=== PATIENT | female | born 1965 | race Caucasian/White ===

== ENCOUNTER 2018-07-03 17:27 | Observation (INO) | payer BC, OTHER ==
[2018-07-03 17:38] VITALS: BMI 20.7
--- NOTE | 2018-07-03 17:44 | PDOC ---
History of Present Illness - General Chief Complaint: Irregular Heart Beat Stated Complaint: AFIV Time Seen by Provider: 07/03/18 17:44 - History of Present Illness Initial Comments: 52yo F with PMH of HTN sent by an urgent care center for new-onset Afib with RVR. Patient reports feeling dizzy, lightheaded, and weak since 11:30am this morning. She has never felt this way before. She was prompted by family members to go to an urgent care as she continued to feel poorly. At the urgent care, an EKG was performed and patient was found to have afib with rvr. 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 No focal neurologic deficits or syncopal episodes. Denies fevers, chills, chest pain, or shortness of breath. PCP: Dr. Acharya Past History - Past Medical History Allergies/Adverse Reactions: Allergies Allergy/AdvReac Type Severity Reaction Status Date / Time No Known Allergies Allergy Unverified 12/20/13 12:45 Home Medications: Ambulatory Orders Amlodipine Besylate/Benazepril [Lotrel 5-20 mg Capsule] 1 each PO DAILY - Suicide/Smoking/Psychosocial Hx Smoking History: Unknown if ever smoked Review of Systems - Review of Systems Comments:: Constitutional: no fever, no chills HEENT: no throat pain, no dysphagia Cardiovascular: no chest pain, +palpitations Respiratory: no cough, no shortness of breath Gastrointestinal: no abdominal pain, +nausea Genitourinary: no dysuria, no frequency Musculoskeletal: no myalgia, no arthralgia Skin: no rash, no itching Neurologic: no headache, +weakness *Physical Exam - Vital Signs Last Vital Signs Temp Pulse Resp BP Pulse Ox 97.1 F L 136 H 20 109/67 100 07/03/18 17:30 07/03/18 17:30 07/03/18 17:30 07/03/18 17:30 07/03/18 17:30 - Physical Exam Comments: General: Awake, alert, and fully oriented, anxious-appearing Head: No signs of trauma Eyes: EOMI, sclera anicteric ENT: Moist mucus membranes Neck: Normal ROM, supple Lungs: Lungs clear, Normal breath sounds Cardio: Irregular rate and rhythm, S1 and S2 present Abdomen: Soft, nontender. No guarding, no rebound, no masses Extremities: Normal range of motion, Distal pulses present SKIN: Warm, Dry, normal turgor Neurologic: Cranial nerves II through XII grossly intact. Normal speech ED Treatment Course - LABORATORY CBC & Chemistry Diagram: 07/04/18 05:30 07/04/18 05:30 Medical Decision Making - Medical Decision Making 52yo F with PMH of HTN sent by an urgent care center for new-onset Afib with RVR. Cardizem 10mg given, rate still in 130s-140s Another Cardizem 10mg given, rate still in 130s-140s Cardizem drip ordered, for starting rate of 5 07/03/18 18:39 Patient signed out to Dr. Muniz 07/03/18 19:18 *DC/Admit/Observation/Transfer Diagnosis at time of Disposition: New onset a-fib - Referrals - Patient Instructions - Post Discharge Activity
--- NOTE | 2018-07-03 17:45 | PDOC ---
Attending Attestation - HPI HPI: 07/03/18 18:38 The patient is a 52 year old female with no past medical history who presents to the ED sent from urgent care for evaluation of new onset AFib. The patient states she woke up feeling well, did her laundry and put the clean clothes away around 11AM. She states she felt dehydrated after doing the morning laundry, drank water and laid on the couch, however, developed a sudden onset of dizziness and intermittent palpitations. She also reports a couple episodes of diarrhea, nausea, and vomiting which alerted her partner to take her to urgent care. She states she has never experienced these symptoms in the past. She denies chest pain, SOB. She denies dysuria, hematuria. She denies hematochezia. Allergies: NKDA PCP: Dr. Acharya - Physicial Exam PE: 07/03/18 18:42 GENERAL: The patient is in no acute distress. HEAD: Normal with no signs of trauma. EYES: PERRLA, EOMI, sclera anicteric, conjunctiva clear. ENT: Ears normal, nares patent, oropharynx clear without exudates. Moist mucous membranes. NECK: Normal range of motion, supple without lymphadenopathy, JVD, or masses. LUNGS: Breath sounds equal, clear to auscultation bilaterally. No wheezes, and no crackles. HEART: (+) irregularly irregular, normal S1 and S2 without murmur, rub or gallop. ABDOMEN: Soft, nontender, normoactive bowel sounds. No guarding, no rebound. No masses palpable. EXTREMITIES: Normal range of motion, no edema. No clubbing or cyanosis. No erythema, or tenderness. NEUROLOGICAL: Cranial nerves II through XII grossly intact. Normal speech. No focal neurological deficits. MUSCULOSKELETAL: Back non-tender to palpation, no CVA tenderness SKIN: Warm, Dry, normal turgor, no rashes or lesions noted. <Lisbeth Razo - Last Filed: 07/03/18 18:38> - Resident Resident Name: Daniela Starks - ED Attending Attestation I have performed the following: I have examined & evaluated the patient, The case was reviewed & discussed with the resident, I agree w/resident's findings & plan, Exceptions are as noted - Medical Decision Making 07/03/18 18:30 52 yo F h/o HTN with new onset Afib presenting to the ER with a complaint of dizziness No chest pain (+) shortness of breath no palpitations Pt seen at urgent care and sent to the ER for evaluation EKG - Afib rate of 138 bpm, no st elevation or depression, axis nml, intervals nml, t wave flattening Given cardizem HR decreased from 150 to 110 Given Cardizem 60 mg po Awaiting labs Awaiting CXR Will admit 07/03/18 18:43 Pt HR increased again to 150 Cardizem 10 given again 07/03/18 18:44 CXR - no acute findings Labs pending Will admit Cardiology consult Signed out to night team <Nohemi Rodriguez - Last Filed: 07/05/18 17:47> Attestations - Attestations 07/03/18 18:42 Documentation prepared by Lisbeth Razo, acting as biomedical equipment support specialist for Nohemi Rodriguez MD <Lisbeth Razo - Last Filed: 07/03/18 18:38>
[2018-07-03] MEDS ORDERED: dilTIAZem HCL 50 MG/10 ML - 10 ML VIAL IVPUSH ONE ×2 (18:21→18:39)
[2018-07-03] MEDS ORDERED: SODIUM CHLORIDE 1,000 ML IV STA (18:22)
[2018-07-03] MEDS ORDERED: dilTIAZem HCL 125 MG/25 ML - 25 ML VIAL ONE (18:25)
[2018-07-03] MEDS ORDERED: dilTIAZem HCL 60 MG TABLET (FP) ONE (18:29)
[2018-07-03] MEDS ORDERED: dilTIAZem HCL 60 MG TABLET (FP) PO ONE (18:29)
[2018-07-03 18:47] LABS: BASO % 0.5 % (0-2.0); EOS % 0.4 % (0-4.5); HEMATOCRIT 41.1 % (32.4-45.2); HEMOGLOBIN 13.8 GM/dL (10.7-15.3); LYMPH % 6.8 % (8-40); MCH 29.7 pg (25.7-33.7); MCHC 33.7 g/dl (32.0-36.0); MEAN CELL VOLUME 88.2 fl (80-96); MEAN PLT VOLUME 8.4 fl (7.5-11.1); MONO % 4.7 % (3.8-10.2); NEUT % 87.6 % (42.8-82.8); PLATELET COUNT 322 K/MM3 (134-434); RBC 4.65 M/mm3 (3.60-5.2); RDW 12.5 % (11.6-15.6); WHITE BLOOD COUNT 13.3 K/mm3 (4.0-10.0)
[2018-07-03] MEDS ORDERED: DILTIAZEM INJECTION 125 MG in DEXTROSE 5%-WATER - 100 ML IVPB SCH (19:00)
[2018-07-03 19:01] LABS: INR 1.02 (0.83-1.09)
[2018-07-03 19:03] LABS: ACTIVATED PTT 31.5 SECONDS (25.2-36.5)
[2018-07-03 19:33] LABS: ALBUMIN 4.4 g/dl (3.4-5.0); ALK PHOS 124 U/L (45-117); ANION GAP 11 MMOL/L (8-16); BILIRUBIN,TOTAL 0.5 mg/dL (0.2-1); BLOOD UREA NITROGEN 9 mg/dL (7-18); CALCIUM 8.5 mg/dL (8.5-10.1); CHLORIDE 104 mmol/L (98-107); CO2 23 mmol/L (21-32); CREATININE 0.5 mg/dL (0.55-1.3); GLUCOSE,RANDOM 117 mg/dL (74-106); N-TERMINAL BNP 86.3 pg/ml (5-125); POTASSIUM 3.6 mmol/L (3.5-5.1); SGOT/AST 21 U/L (15-37); SGPT/ALT 26 U/L (13-61); SODIUM 137 mmol/L (136-145); TOT PROT 7.9 g/dl (6.4-8.2)
--- NOTE | 2018-07-03 21:13 | PDOC ---
*Physical Exam - Vital Signs Last Vital Signs Temp Pulse Resp BP Pulse Ox 98.1 F 95 H 23 H 110/62 98 07/03/18 18:02 07/03/18 19:20 07/03/18 18:02 07/03/18 19:20 07/03/18 18:02 ED Treatment Course - LABORATORY CBC & Chemistry Diagram: 07/03/18 18:08 07/03/18 18:08 - ADDITIONAL ORDERS Additional order review: Laboratory Results 07/03/18 07/03/18 07/03/18 18:08 18:08 18:08 PT with INR 12.00 INR 1.02 PTT (Actin FS) 31.5 Sodium Potassium Chloride Carbon Dioxide Anion Gap BUN Creatinine Creat Clearance w eGFR Random Glucose Calcium Total Bilirubin AST ALT Alkaline Phosphatase Creatine Kinase 75 Troponin I < 0.02 B-Natriuretic Peptide Total Protein Albumin TSH Urine HCG, Qual Negative 07/03/18 18:08 PT with INR INR PTT (Actin FS) Sodium 137 Potassium 3.6 Chloride 104 Carbon Dioxide 23 Anion Gap 11 BUN 9 Creatinine 0.5 L Creat Clearance w eGFR 129.06 Random Glucose 117 H Calcium 8.5 Total Bilirubin 0.5 AST 21 ALT 26 Alkaline Phosphatase 124 H Creatine Kinase Troponin I B-Natriuretic Peptide 86.3 Total Protein 7.9 Albumin 4.4 TSH 0.63 Urine HCG, Qual 07/03/18 18:08 RBC 4.65 MCV 88.2 MCHC 33.7 RDW 12.5 MPV 8.4 Neutrophils % 87.6 H Lymphocytes % 6.8 L Monocytes % 4.7 Eosinophils % 0.4 Basophils % 0.5 - Medications Given in the ED: ED Medications Discontinued Medications Generic Name Dose Route Start Last Admin Trade Name Freq PRN Reason Stop Dose Admin Diltiazem HCl 10 mg 07/03/18 18:21 07/03/18 18:32 Cardizem Injection - IVPUSH 07/03/18 18:22 10 mg ONCE ONE Administration Diltiazem HCl 60 mg 07/03/18 18:29 07/03/18 18:32 Cardizem - PO 07/03/18 18:30 60 mg ONCE ONE Administration Diltiazem HCl 10 mg 07/03/18 18:39 07/03/18 18:59 Cardizem Injection - IVPUSH 07/03/18 18:40 10 mg ONCE ONE Administration Sodium Chloride 1,000 mls @ 1,000 mls/hr 07/03/18 18:22 07/03/18 18:32 Normal Saline - IV 07/03/18 19:21 1,000 mls/hr ASDIR STA Administration *DC/Admit/Observation/Transfer Diagnosis at time of Disposition: New onset a-fib - Discharge Dispostion Decision to Admit order: Yes - Referrals Referrals: Harsha Acharya MD [Primary Care Provider] - - Patient Instructions - Post Discharge Activity
[2018-07-03 23:01] LABS: EPI CELLS 1.2 /HPF (0-5/HPF); PH,URINE 6.5 (5.0-8.0); URINE APPEARANCE CLEAR; URINE BACTERIA 56.2 /hpf (NEGATIVE); URINE BILIRUBIN NEGATIVE (NEGATIVE); URINE CASTS 0 /hpf (0-8); URINE COLOR YELLOW; URINE GLUCOSE (UA) NEGATIVE (NEGATIVE); URINE KETONE 1+ (NEGATIVE); URINE LEUK ESTERASE NEGATIVE (NEGATIVE); URINE NITRITE NEGATIVE (NEGATIVE); URINE PROTEIN NEGATIVE (NEGATIVE); URINE RBC 2 /hpf (0-4); URINE UROBILINOGEN 0.2 mg/dL (0.2-1.0); URINE WBC 1 /hpf (0-5)
--- NOTE | 2018-07-04 02:53 | HP ---
CHIEF COMPLAINT: palpitations, vomiting and diarrhea today PCP:Dr. Acharya HISTORY OF PRESENT ILLNESS: 52 year old female with history of hypertension(on amlodipine) who presented with palpitations in addition to vomiting and diarrhea which started today at around 11:30 pm. She was found to in (new onset) atrial fibrillation with RVR in the ER . She was started on a IV cardizem gtt and converted spontaneously to a regular rhythm. She denies history of prior arrthymia,TIA, excessive intake of alcohol, or sleep apnea. She reports she drinks pepsi on a daily basis. She was found to have an elevated WBC of 13.3. She is being admitted to observation to telemetry for further cardiac and medical evaluation. Recent Travel:denies PAST MEDICAL HISTORY:hypertension PAST SURGICAL HISTORY:denies Social History: Smoking:denies Alcohol:denies Drugs: denies Family History:noncontributory Allergies No Known Allergies Allergy (Unverified 12/20/13 12:45) HOME MEDICATIONS: Home Medications Medication Instructions Recorded Amlodipine Besylate/Benazepril 1 each PO DAILY 07/03/18 [Lotrel 5-20 mg Capsule] REVIEW OF SYSTEMS CONSTITUTIONAL: Absent: fever, chills, diaphoresis, generalized weakness, malaise, loss of appetite, weight change HEENT: Absent: rhinorrhea, nasal congestion, throat pain, throat swelling, difficulty swallowing, mouth swelling, ear pain, eye pain, visual changes CARDIOVASCULAR: Absent: chest pain, syncope, palpitations, irregular heart rate, lightheadedness , peripheral edema RESPIRATORY: Absent: cough, shortness of breath, dyspnea with exertion, orthopnea, wheezing, stridor, hemoptysis GASTROINTESTINAL: Absent: abdominal pain, abdominal distension, nausea, vomiting, diarrhea, constipation, melena, hematochezia GENITOURINARY: Absent: dysuria, frequency, urgency, hesitancy, hematuria, flank pain, genital pain MUSCULOSKELETAL: Absent: myalgia, arthralgia, joint swelling, back pain, neck pain SKIN: Absent: rash, itching, pallor HEMATOLOGIC/IMMUNOLOGIC: Absent: easy bleeding, easy bruising, lymphadenopathy, frequent infections ENDOCRINE: Absent: unexplained weight gain, unexplained weight loss, heat intolerance, cold intolerance NEUROLOGIC: Absent: headache, focal weakness or paresthesias, dizziness, unsteady gait, seizure, mental status changes, bladder or bowel incontinence PSYCHIATRIC: Absent: anxiety, depression, suicidal or homicidal ideation, hallucinations. PHYSICAL EXAMINATION Vital Signs - 24 hr 07/03/18 07/03/18 07/03/18 17:30 18:02 19:20 Temperature 97.1 F L 98.1 F Pulse Rate 136 H 95 H Pulse Rate [ 132 H Apical] Respiratory 20 23 H Rate Blood Pressure 109/67 110/62 Blood Pressure 102/65 [Left] O2 Sat by Pulse 100 98 Oximetry (%) 07/03/18 07/03/18 07/03/18 20:15 21:20 22:24 Temperature Pulse Rate Pulse Rate [ 92 H 80 75 Apical] Respiratory Rate Blood Pressure Blood Pressure [Left] O2 Sat by Pulse Oximetry (%) 07/03/18 07/04/18 23:15 00:19 Temperature Pulse Rate Pulse Rate [ 70 Apical] Respiratory 18 Rate Blood Pressure Blood Pressure 99/65 121/76 [Left] O2 Sat by Pulse 98 Oximetry (%) GENERAL: awake, alert, and fully oriented HEAD: normal with no signs of trauma EYES: pupils equal, round and reactive to light EARS, NOSE, THROAT: ears normal nares patent oropharynx clear without exudates NECK: Normal range of motion, LUNGS: breath sounds equal, clear to auscultation bilaterally no rales no wheezing HEART: regular rate and rhythm, normal S1 and S2 without murmur, ABDOMEN: soft, nontender, not distended, normoactive bowel sounds MUSCULOSKELETAL: Normal range of motion at all joints. No bony deformities or tenderness UPPER EXTREMITIES: 2+ pulses, warm, well-perfused no cyanosis no clubbing no peripheral edema LOWER EXTREMITIES: 2+ pulses, warm, well-perfused No calf tenderness no peripheral edema NEUROLOGICAL: no neuro focal deficits PSYCHIATRIC: cooperative. SKIN: warm, dry, normal turgor, no rashes or lesions noted, normal capillary refill Laboratory Results - last 24 hr 07/03/18 07/03/18 07/03/18 18:08 18:08 18:08 WBC 13.3 H RBC 4.65 Hgb 13.8 Hct 41.1 MCV 88.2 MCH 29.7 MCHC 33.7 RDW 12.5 Plt Count 322 MPV 8.4 Absolute Neuts (auto) 11.6 H Neutrophils % 87.6 H Lymphocytes % 6.8 L Monocytes % 4.7 Eosinophils % 0.4 Basophils % 0.5 Nucleated RBC % 0 PT with INR INR PTT (Actin FS) Sodium 137 Potassium 3.6 Chloride 104 Carbon Dioxide 23 Anion Gap 11 BUN 9 Creatinine 0.5 L Creat Clearance w eGFR 129.06 Random Glucose 117 H Calcium 8.5 Total Bilirubin 0.5 AST 21 ALT 26 Alkaline Phosphatase 124 H Creatine Kinase 75 Troponin I < 0.02 B-Natriuretic Peptide 86.3 Total Protein 7.9 Albumin 4.4 TSH 0.63 Urine Color Urine Appearance Urine pH Ur Specific [place] Urine Protein Urine Glucose (UA) Urine Ketones Urine Blood Urine Nitrite Urine Bilirubin Urine Urobilinogen Ur Leukocyte Esterase Urine WBC (Auto) Urine RBC (Auto) Urine Casts (Auto) U Epithel Cells (Auto) Urine Bacteria (Auto) Urine HCG, Qual 07/03/18 07/03/18 07/03/18 18:08 18:08 22:45 WBC RBC Hgb Hct MCV MCH MCHC RDW Plt Count MPV Absolute Neuts (auto) Neutrophils % Lymphocytes % Monocytes % Eosinophils % Basophils % Nucleated RBC % PT with INR 12.00 INR 1.02 PTT (Actin FS) 31.5 Sodium Potassium Chloride Carbon Dioxide Anion Gap BUN Creatinine Creat Clearance w eGFR Random Glucose Calcium Total Bilirubin AST ALT Alkaline Phosphatase Creatine Kinase Troponin I B-Natriuretic Peptide Total Protein Albumin TSH Urine Color Yellow Urine Appearance Clear Urine pH 6.5 Ur Specific [place] 1.004 L Urine Protein Negative Urine Glucose (UA) Negative Urine Ketones 1+ H Urine Blood Trace Urine Nitrite Negative Urine Bilirubin Negative Urine Urobilinogen 0.2 Ur Leukocyte Esterase Negative Urine WBC (Auto) 1 Urine RBC (Auto) 2 Urine Casts (Auto) 0 U Epithel Cells (Auto) 1.2 Urine Bacteria (Auto) 56.2 Urine HCG, Qual Negative ASSESSMENT/PLAN: 52 year old female with history of hypertension(on amlodipine) who presented with palpitations in addition to vomiting and diarrhea and in this setting found to be in (new onset) atrial fibrillation with RVR . She was started on a IV cardizem gtt and converted spontaneously to a regular rhythm. New Onset Atrial Fibrillation Converted to sr with IV cardizem gtt, no signs of fluid overload, TSH normal. Continue with telemetry. Echocardiogram ordered. Added metoprolol tartrate 25 mg once daily for rate control Added therapeutic lovenox for anticoagulation. EVELIO VAsc score is 2 for stroke risk and likely will benefit with assistant terminal manager NOAC. Will defer to Cardiology. Cardiology- Dr.. Soriano consulted. Leukocytosis UA negative, CXR with no infiltrate, and a more prominent mediastinum, remains afebrile. Will check CT scan of chest and abdomen with and without IV contrast to exclude infectious process. Hypertension Controlled. Continue with amlodipine and metoprolol tartrate. DVT Prohplaxis Continue with lovenox. Visit type - Emergency Visit Emergency Visit: No - New Patient This patient is new to me today: Yes Date on this admission: 07/04/18 - Critical Care Critical Care patient: No
[2018-07-04] MEDS ORDERED: ENOXAPARIN NA (PORCINE) 40 MG/0.4 ML DISP.SYRIN SQ SCH (03:00)
[2018-07-04] MEDS ORDERED: ENOXAPARIN NA (PORCINE) 40 MG/0.4 ML DISP.SYRIN SQ ONE (03:10)
[2018-07-04 06:11] LABS: HEMATOCRIT 38.3 % (32.4-45.2); HEMOGLOBIN 13.2 GM/dL (10.7-15.3); MCH 30.5 pg (25.7-33.7); MCHC 34.5 g/dl (32.0-36.0); MEAN CELL VOLUME 88.4 fl (80-96); MEAN PLT VOLUME 8.4 fl (7.5-11.1); PLATELET COUNT 317 K/MM3 (134-434); RBC 4.33 M/mm3 (3.60-5.2); RDW 12.7 % (11.6-15.6); WHITE BLOOD COUNT 10.3 K/mm3 (4.0-10.0)
[2018-07-04 06:39] LABS: ANION GAP 6 MMOL/L (8-16); BLOOD UREA NITROGEN 6 mg/dL (7-18); CHLORIDE 105 mmol/L (98-107); CO2 25 mmol/L (21-32); CREATININE 0.4 mg/dL (0.55-1.3); GLUCOSE,RANDOM 106 mg/dL (74-106); MAGNESIUM 2.2 mg/dL (1.8-2.4); POTASSIUM 3.6 mmol/L (3.5-5.1); SODIUM 136 mmol/L (136-145)
[2018-07-04] MEDS ORDERED: METOPROLOL TARTRATE 25 MG TABLET (FP) PO SCH (10:00)
[2018-07-04] MEDS ORDERED: amLODIPine BESYLATE 5 MG TABLET (FP) PO SCH (10:00)
[2018-07-04 10:50] VITALS: BP 121/75; PULSE 90; TEMP 98.3
[2018-07-04] MEDS ORDERED: METOPROLOL TARTRATE 25 MG TABLET (FP) ONE (10:55)
[2018-07-04] MEDS ORDERED: amLODIPine BESYLATE 5 MG TABLET (FP) ONE (10:55)
--- NOTE | 2018-07-04 11:17 | PN ---
Progress Note (short form) - Note Progress Note: Events noted Pt is lying down , no distress no palpitations No chest pain No SOB no dizziness Vital Signs - 24 hr 07/03/18 07/03/18 07/03/18 17:30 18:02 19:20 Temperature 97.1 F L 98.1 F Pulse Rate 136 H 95 H Pulse Rate [ 132 H Apical] Respiratory 20 23 H Rate Blood Pressure 109/67 110/62 Blood Pressure 102/65 [Left] O2 Sat by Pulse 100 98 Oximetry (%) 07/03/18 07/03/18 07/03/18 20:15 21:20 22:24 Temperature Pulse Rate Pulse Rate [ 92 H 80 75 Apical] Respiratory Rate Blood Pressure Blood Pressure [Left] O2 Sat by Pulse Oximetry (%) 07/03/18 07/04/18 07/04/18 23:15 00:19 04:15 Temperature Pulse Rate Pulse Rate [ 70 74 Apical] Respiratory 18 18 Rate Blood Pressure Blood Pressure 99/65 121/76 111/70 [Left] O2 Sat by Pulse 98 100 Oximetry (%) 07/04/18 07/04/18 06:58 10:00 Temperature 97.8 F 98.3 F Pulse Rate Pulse Rate [ 74 90 Apical] Respiratory 18 18 Rate Blood Pressure Blood Pressure 115/49 L 121/75 [Left] O2 Sat by Pulse 98 99 Oximetry (%) Current Medications Generic Name Dose Route Start Last Admin Trade Name Freq PRN Reason Stop Dose Admin Amlodipine Besylate 5 mg 07/04/18 10:00 07/04/18 11:04 Norvasc - PO 5 mg DAILY MERNA Administration Apixaban 5 mg 07/04/18 22:00 Eliquis - PO BID MERNA Metoprolol Tartrate 25 mg 07/04/18 10:00 07/04/18 11:03 Lopressor - PO 25 mg DAILY MERNA Administration Laboratory Results - last 24 hr 07/03/18 07/03/18 07/03/18 18:08 18:08 18:08 WBC 13.3 H RBC 4.65 Hgb 13.8 Hct 41.1 MCV 88.2 MCH 29.7 MCHC 33.7 RDW 12.5 Plt Count 322 MPV 8.4 Absolute Neuts (auto) 11.6 H Neutrophils % 87.6 H Lymphocytes % 6.8 L Monocytes % 4.7 Eosinophils % 0.4 Basophils % 0.5 Nucleated RBC % 0 PT with INR INR PTT (Actin FS) Sodium 137 Potassium 3.6 Chloride 104 Carbon Dioxide 23 Anion Gap 11 BUN 9 Creatinine 0.5 L Creat Clearance w eGFR 129.06 Random Glucose 117 H Calcium 8.5 Magnesium Total Bilirubin 0.5 AST 21 ALT 26 Alkaline Phosphatase 124 H Creatine Kinase 75 Troponin I < 0.02 B-Natriuretic Peptide 86.3 Total Protein 7.9 Albumin 4.4 TSH 0.63 Urine Color Urine Appearance Urine pH Ur Specific [place] Urine Protein Urine Glucose (UA) Urine Ketones Urine Blood Urine Nitrite Urine Bilirubin Urine Urobilinogen Ur Leukocyte Esterase Urine WBC (Auto) Urine RBC (Auto) Urine Casts (Auto) U Epithel Cells (Auto) Urine Bacteria (Auto) Urine HCG, Qual 07/03/18 07/03/18 07/03/18 18:08 18:08 22:45 WBC RBC Hgb Hct MCV MCH MCHC RDW Plt Count MPV Absolute Neuts (auto) Neutrophils % Lymphocytes % Monocytes % Eosinophils % Basophils % Nucleated RBC % PT with INR 12.00 INR 1.02 PTT (Actin FS) 31.5 Sodium Potassium Chloride Carbon Dioxide Anion Gap BUN Creatinine Creat Clearance w eGFR Random Glucose Calcium Magnesium Total Bilirubin AST ALT Alkaline Phosphatase Creatine Kinase Troponin I B-Natriuretic Peptide Total Protein Albumin TSH Urine Color Yellow Urine Appearance Clear Urine pH 6.5 Ur Specific [place] 1.004 L Urine Protein Negative Urine Glucose (UA) Negative Urine Ketones 1+ H Urine Blood Trace Urine Nitrite Negative Urine Bilirubin Negative Urine Urobilinogen 0.2 Ur Leukocyte Esterase Negative Urine WBC (Auto) 1 Urine RBC (Auto) 2 Urine Casts (Auto) 0 U Epithel Cells (Auto) 1.2 Urine Bacteria (Auto) 56.2 Urine HCG, Qual Negative 07/04/18 07/04/18 05:30 05:30 WBC 10.3 H RBC 4.33 Hgb 13.2 Hct 38.3 MCV 88.4 MCH 30.5 MCHC 34.5 RDW 12.7 Plt Count 317 MPV 8.4 Absolute Neuts (auto) Neutrophils % Lymphocytes % Monocytes % Eosinophils % Basophils % Nucleated RBC % PT with INR INR PTT (Actin FS) Sodium 136 Potassium 3.6 Chloride 105 Carbon Dioxide 25 Anion Gap 6 L BUN 6 L Creatinine 0.4 L Creat Clearance w eGFR 166.97 Random Glucose 106 Calcium 9.0 Magnesium 2.2 Total Bilirubin AST ALT Alkaline Phosphatase Creatine Kinase Troponin I B-Natriuretic Peptide Total Protein Albumin TSH Urine Color Urine Appearance Urine pH Ur Specific [place] Urine Protein Urine Glucose (UA) Urine Ketones Urine Blood Urine Nitrite Urine Bilirubin Urine Urobilinogen Ur Leukocyte Esterase Urine WBC (Auto) Urine RBC (Auto) Urine Casts (Auto) U Epithel Cells (Auto) Urine Bacteria (Auto) Urine HCG, Qual S1 S2 Irregular Lungs clear Abd- soft, NT No edema PLAN will dc Lovenox and start Eliquis rate is controlled continue with Metoprolol CT Chest=-=- negative ua unremarkable check TSH cardiology eval Echo done pt wants to go home-- will need Cardiology input first Problem List - Problems (1) HTN (hypertension) Code(s): I10 - ESSENTIAL (PRIMARY) HYPERTENSION (2) New onset a-fib Code(s): I48.91 - UNSPECIFIED ATRIAL FIBRILLATION
--- NOTE | 2018-07-04 12:46 | ECHO ---
Name: RAJAN BLACKMON Exam:Adult Echocardiogram Study Date: 07/04/2018 08:30 AM Age: 52 yrs Reason For Study: Arrhythmia Height: 63 in Weight: 117 lb BSA: 1.5 m2 MMode/2D Measurements & Calculations IVSd: 0.78 cm Ao root diam: 2.6 cm LVIDd: 4.3 cm LA dimension: 2.6 cm LVIDs: 2.4 cm LVPWd: 0.74 cm EDV(Teich): 84.9 ml LVOT diam: 2.0 cm ESV(Teich): 19.6 ml Doppler Measurements & Calculations MV E max rupert: 71.3 cm/sec Ao V2 max: 143.9 cm/sec MV A max rupert: 87.3 cm/sec Ao max P.3 mmHg MV E/A: 0.82 MV dec time: 0.14 sec MARGIE(V,D): 2.4 cm2 LV V1 max P.8 mmHg PA V2 max: 105.9 cm/sec LV V1 max: 109.6 cm/sec PA max P.5 mmHg Med Peak E' Rupert: 7.9 cm/sec PI Vmax: 116.7 cm/sec Med E/e': 9.0 Lat Peak E' Rupert: 11.7 cm/sec Lat E/e': 6.1 Procedure A complete two-dimensional transthoracic echocardiogram was performed (2D, M-mode, Doppler and color flow Doppler). Left Ventricle The left ventricular size, thickness and function are normal. The left ventricular ejection fraction is normal. Ejection Fraction = 55-60%. Right Ventricle The right ventricle is normal in size and function. Atria Normal left and right atrial size and function. Mitral Valve There is no mitral regurgitation noted. Tricuspid Valve There is trace tricuspid regurgitation. There was insufficient TR detected to calculate RV systolic p ressure. Aortic Valve No hemodynamically significant valvular aortic stenosis. No aortic regurgitation is present. Pulmonic Valve There is no pulmonic valvular regurgitation. Great Vessels The aortic root is normal size. Pericardium/Pleura There is no pericardial effusion. Interpretation Summary The left ventricular size, thickness and function are normal The right ventricle is normal in size and function. There is trace tricuspid regurgitation. MD Malcolm Rodriguez 07/04/2018 12:46 PM
--- NOTE | 2018-07-04 16:24 | CON.CARD ---
Consult Consult Specialty:: cardiology Reason for Consultation:: ?New onset AF - History of Present Illness Chief Complaint: Pt A&Ox3; ambulatory; asymptomatic. Her is at bedside. History of Present Illness: The patient is a 52 year old female with HTN (on amlodipine) and anxiety/panic attacks, perimenopausal, s/p lower back surgery severa years ago, who presents to the ED sent from urgent care for evaluation of new onset AFib. The patient states she woke up feeling well, did her laundry and put the clean clothes away around 11AM. She states she felt dehydrated after doing the morning laundry, drank water and laid on the couch, however, developed a sudden onset of dizziness and intermittent palpitations. She also reports a couple episodes of diarrhea, nausea, and vomiting which alerted her partner to take her to urgent care. She has had a few episodes in the past 3 weeks of weakness and palpitations. She denies chest pain, SOB. She denies dysuria, hematuria. She denies hematochezia. She walks every day so that her back does not become stiff; at times she walks two or three miles to visit her mother. SHe denies chesst pain, dizziness, dyspnea, or palpitations while walking. She was told her cholesterol was "a little high" recently. She has a cup of doffee alsmot every night. Allergies: NKDA PCP: Dr. Acharya - History Source History Provided By: Patient, Family Member, Medical Record Limitations to Obtaining History: No Limitations - Past Medical History Reproductive: Yes: Other (menses have been irregular lately) Psych: Yes: Anxiety, Panic - Past Surgical History Past Surgical History: Yes: Laminectomy (lower back surgery several years ago) - Alcohol/Substance Use Hx Alcohol Use: No History of Substance Use: reports: None - Smoking History Smoking history: Never smoked - Social History Usual Living Arrangement: With Spouse Home Medications - Allergies Allergies/Adverse Reactions: Allergies Allergy/AdvReac Type Severity Reaction Status Date / Time No Known Allergies Allergy Unverified 07/04/18 17:21 - Home Medications Home Medications: Ambulatory Orders Apixaban [Eliquis -] 5 mg PO BID #60 tablet 07/04/18 Diltiazem Cd [Cardizem Cd -] 120 mg PO DAILY #30 cap.cd.24h 07/04/18 Family Disease History - Family Disease History Family Disease History: Other: Father (CVA in his 70s) Review of Systems - Review of Systems Constitutional: reports: No Symptoms Eyes: reports: No Symptoms HENT: reports: No Symptoms Neck: reports: No Symptoms Cardiovascular: reports: Palpitations Respiratory: reports: No Symptoms Gastrointestinal: reports: No Symptoms Genitourinary: reports: Other (irregular menses lately) Breasts: reports: No Symptoms Reported Musculoskeletal: reports: No Symptoms Integumentary: reports: No Symptoms Neurological: reports: Weakness Endocrine: reports: No Symptoms Hematology/Lymphatic: reports: No Symptoms Psychiatric: reports: Anxiety, Panic - Risk Factors Known Risk Factors: Yes: Age, Hypercholesterolemia, Hypertension Vital Signs: Vital Signs Temperature 98.3 F 07/04/18 10:00 Pulse Rate 90 07/04/18 10:00 Respiratory Rate 18 07/04/18 10:00 Blood Pressure 121/75 07/04/18 10:00 O2 Sat by Pulse Oximetry (%) 99 07/04/18 10:00 Constitutional: Yes: Calm, Thin Eyes: Yes: WNL HENT: Yes: WNL Neck: Yes: WNL Respiratory: Yes: WNL Gastrointestinal: Yes: WNL Renal/: Yes: WNL Cardiovascular: Yes: WNL JVD: No Carotid Bruit: No PMI: Non-Displaced Heart Sounds: Yes: S1 Musculoskeletal: Yes: WNL Extremities: Yes: WNL Edema: No Peripheral Pulses WNL: Yes Integumentary: Yes: WNL Neurological: Yes: WNL ...Motor Strength: WNL Psychiatric: Yes: WNL - Other Data Labs, Other Data: CBC, BMP 07/04/18 05:30 07/04/18 05:30 INR, PTT INR 1.02 (0.83-1.09) 07/03/18 18:08 Troponin, BNP 07/03/18 07/03/18 18:08 18:08 Troponin I < 0.02 B-Natriuretic Peptide 86.3 Troponin, BNP 07/03/18 07/03/18 18:08 18:08 Troponin I < 0.02 B-Natriuretic Peptide 86.3 Abnormal Lab Results 07/03/18 07/03/18 07/03/18 18:08 18:08 22:45 WBC 13.3 H Absolute Neuts (auto) 11.6 H Neutrophils % 87.6 H Lymphocytes % 6.8 L Anion Gap BUN Creatinine 0.5 L Random Glucose 117 H Alkaline Phosphatase 124 H Ur Specific [place] 1.004 L Urine Ketones 1+ H 07/04/18 07/04/18 05:30 05:30 WBC 10.3 H Absolute Neuts (auto) Neutrophils % Lymphocytes % Anion Gap 6 L BUN 6 L Creatinine 0.4 L Random Glucose Alkaline Phosphatase Ur Specific [place] Urine Ketones Echo: Report Reviewed (normal LVEF; normal chamber sizes) Ejection Fraction %: LVEF > or = 40 % Imaging - Results Chest X-ray: Image Reviewed (no acute pathology) EKG: Image Reviewed (Initial EKG: AF with RVR 2nd EKG: NSR; normal study) Problem List - Problems (1) Panic anxiety syndrome Code(s): F41.0 - PANIC DISORDER [EPISODIC PAROXYSMAL ANXIETY] (2) Perimenopausal Code(s): N95.1 - MENOPAUSAL AND FEMALE CLIMACTERIC STATES (3) HTN (hypertension) Code(s): I10 - ESSENTIAL (PRIMARY) HYPERTENSION (4) New onset a-fib Assessment/Plan: Now back to sinus rhythm. ECHO: normal LVEF; normal chamber sizes. TSH WNL. Plan: Will diiscontinue metoprolol (pt is young, and has no reduction in LVEF or knopwn CAD) and start diltiazem CD. Dscontinue amlodipine. Pt is on apixaban 5 mg bid for anticoagulation. Folow HR and BP as outpaient. From a cardiac perspective, pt may be followed as an outpatient. Will have EP consult for long-term rate/rhythm monitoring to determine efficacy of diltiazem and necessity of long-trerm anticoagulation, and consideration of ablation in the future. Code(s): I48.91 - UNSPECIFIED ATRIAL FIBRILLATION (5) Hyperlipidemia Assessment/Plan: f/u lipid profile (hx of lipids being "a little high"). Code(s): E78.5 - HYPERLIPIDEMIA, UNSPECIFIED
--- NOTE | 2018-07-04 16:35 | EKG ---
Test Reason : Blood Pressure : / mmHG Vent. Rate : 078 BPM Atrial Rate : 078 BPM P-R Int : 124 ms QRS Dur : 072 ms QT Int : 408 ms P-R-T Axes : 000 035 022 degrees QTc Int : 465 ms NORMAL SINUS RHYTHM NONSPECIFIC T WAVE ABNORMALITY PROLONGED QT ABNORMAL ECG WHEN COMPARED WITH ECG OF 03-JUL-2018 17:43, SINUS RHYTHM HAS REPLACED ATRIAL FIBRILLATION VENT. RATE HAS DECREASED BY 60 BPM NON-SPECIFIC CHANGE IN ST SEGMENT IN INFERIOR LEADS Confirmed by PRADIP HARRELL MD ([id number]) on 07/04/2018 4:35:03 PM Referred By: Confirmed By:PRADIP HARRELL MD
--- NOTE | 2018-07-04 16:37 | EKG ---
Test Reason : Blood Pressure : / mmHG Vent. Rate : 138 BPM Atrial Rate : 110 BPM P-R Int : 000 ms QRS Dur : 070 ms QT Int : 264 ms P-R-T Axes : 000 064 -39 degrees QTc Int : 399 ms POOR DATA QUALITY, INTERPRETATION MAY BE ADVERSELY AFFECTED ATRIAL FIBRILLATION WITH RAPID VENTRICULAR RESPONSE NONSPECIFIC T WAVE ABNORMALITY ABNORMAL ECG NO PREVIOUS ECGS AVAILABLE Confirmed by PRADIP HARRELL MD ([id number]) on 07/04/2018 4:36:52 PM Referred By: Confirmed By:PRADIP HARRELL MD
--- NOTE | 2018-07-04 17:05 | DS ---
Physical Examination Vital Signs: Vital Signs Temperature 98.3 F 07/04/18 10:00 Pulse Rate 90 07/04/18 10:00 Respiratory Rate 18 07/04/18 10:00 Blood Pressure 121/75 07/04/18 10:00 O2 Sat by Pulse Oximetry (%) 99 07/04/18 10:00 Constitutional: Yes: No Distress, Calm Cardiovascular: Yes: Regular Rate and Rhythm Respiratory: Yes: CTA Bilaterally Gastrointestinal: Yes: Normal Bowel Sounds, Soft. No: Tenderness Edema: No Labs: CBC, BMP 07/04/18 05:30 07/04/18 05:30 Discharge Summary Reason For Visit: NEW ONSET ATRIAL FIBRILLATION Current Active Problems HTN (hypertension) (Acute) New onset a-fib (Acute) Hospital Course: patient came to the emergency room with feeling of nausea vomiting palpitations and was found to have new onset atrial fibrillation with rapid ventricular response Started on metoprolol and Lovenox Patient evaluated by cardiology She is currently in sinus rhythm, rate is under control Labs reviewed Cardiac enzymes negative chest normal Echo EF is normal, normal LV systolic function Patient is stable for discharge home, she will be on diltiazem, discontinue amlodipine and start Eliquis Spoke with ceramics machine operator, she will also need to follow with telesales specialist Condition: Improved - Instructions Disposition: HOME - Home Medications Comprehensive Discharge Medication List: Ambulatory Orders Apixaban [Eliquis -] 5 mg PO BID #60 tablet 07/04/18 Diltiazem Cd [Cardizem Cd -] 120 mg PO DAILY #30 cap.cd.24h 07/04/18
[2018-07-04] MEDS ORDERED: APIXABAN 5 MG TABLET PO SCH (22:00)
[2018-07-05 07:26] LABS: CHOLESTEROL 173 mg/dL (50-200); HDL CHOLESTEROL 78 mg/dL (40-60); TRIGLYCERIDES 73 mg/dL (0-150)
== END 2018-07-04 17:30 | disposition home or self-care (01) ==
LOC: JER 17:27 → INTOOBSV 21:32 → JERBED 21:32
PROVIDERS: ADMIT Internal Medicine; ATTEND Internal Medicine
PROC: 3E033GC Introduction of Other Therapeutic Substance into Peripheral Vein, Percutaneous Approach (ICD-10-PCS; principal; 2018-07-03)
PROC: 3E0337Z Introduction of Electrolytic and Water Balance Substance into Peripheral Vein, Percutaneous Approach (ICD-10-PCS; 2018-07-03)
PROC: 3E013GC Introduction of Other Therapeutic Substance into Subcutaneous Tissue, Percutaneous Approach (ICD-10-PCS; 2018-07-03)
DX: I48.91 Unspecified atrial fibrillation (principal); I10 Essential (primary) hypertension; D72.829 Elevated white blood cell count, unspecified; F41.0 Panic disorder [episodic paroxysmal anxiety]; N95.1 Menopausal and female climacteric states; E78.5 Hyperlipidemia, unspecified
CPT/HCPCS: 36415; 71045-TC-FY; 71270-TC; 80048; 80053; 80061; 81003; 82550; 83721; 83735; 83880; 84443; 84484; 84703; 85025; 85027; 85610; 85730; 93005; 93010; 93306-TC; 99285-25; G0378; J7030

== ENCOUNTER 2019-02-19 14:51 | Inpatient (IN) | payer BC ==
--- NOTE | 2019-02-19 15:56 | PDOC ---
History of Present Illness - General Chief Complaint: Tachycardia Stated Complaint: PALPITATIONS History Source: Patient, Significant Other Exam Limitations: No Limitations - History of Present Illness Initial Comments: 02/19/19 16:22 Patient is a 53 year old male w/PMH of Afib (on xarelto) and HTN who presents with palpitations. Pt reports that she has felt sick over the past several days and complains of sore throat, abd pain, and 1x episode of vomiting. This morning , she began experiencing palpitations and reports her HR was in the 120s. She had an appointment with her PCP Dr. Ridley this afternoon for a check-up. While at the appt, she started feeling queasy, hot, flushed, and as if her BP was dropping low. Pt's states that she appeared as if she was about to pass out in her chair and was very flushed on the R side of her face. Her heart rate increased to the 140s and she had an elevated BP. Episode lasted for about [address] Ridley immediately called EMS to bring pt to the ED. Pt last saw special education coordinator, Dr. Brown a few months ago. She takes diltiazem 120mg daily and eliquis 5mg BID which she reports compliance with. In the ED, pt is now feeling better and denies palpitations, chest pain, lightheadedness, dizziness, nausea, or fatigue. Patient denies headache, dizziness, focal numbness/weakness. Denies fever, chills. Denies chest pain, shortness of breath. Denies nausea, vomiting, diarrhea, abdominal pain. PCP: Dr. Ridley Cardio: Dr. Brown Surgeries: hernia repair Allergies: NKDA Past History - Past Medical History Allergies/Adverse Reactions: Allergies Allergy/AdvReac Type Severity Reaction Status Date / Time No Known Allergies Allergy Unverified 07/04/18 17:21 Home Medications: Ambulatory Orders Diltiazem Cd [Cardizem Cd -] 120 mg PO DAILY #30 cap.cd.24h 07/04/18 Alprazolam 0.5 mg PO BID PRN 02/19/19 Benazepril HCl [Lotensin] 20 mg PO DAILY 02/19/19 Paroxetine HCl 10 mg PO DAILY 02/19/19 Rivaroxaban [Xarelto -] 20 mg PO DAILY 02/19/19 COPD: No - Immunization History Immunization Up to Date: Yes - Psycho Social/Smoking Cessation Hx Smoking History: Never smoked Have you smoked in the past 12 months: No Information on smoking cessation initiated: No Hx Alcohol Use: No Drug/Substance Use Hx: No Cardiac Specific PMH - Complaint Specific PMHX Cardiac Arrhythmia: Yes (Atrial fibrillation) Review of Systems - Review of Systems Able to Perform ROS?: Yes Constitutional: Yes: Diaphoresis. No: Symptoms Reported, See HPI, Chills, Fever , Loss of Appetite, Malaise, Night Sweats, Weakness, Weight Stable, Unintentional Wgt. Loss, Unexplained wgt Loss, Other HEENTM: No: Symptoms Reported, See HPI, Eye Pain, Blurred Vision, Tearing, Recent change in vision, Double Vision, Cataracts, Ear Pain, Ocular Prothesis, Ear Discharge, Nose Pain, Nose Congestion, Tinnitus, Nose Bleeding, Hearing Loss , Throat Pain, Throat Swelling, Mouth Pain, Dental Problems, Difficulty Swallowing, Mouth Swelling, Other Respiratory: No: Symptoms reported, See HPI, Cough, Orthopnea, Shortness of Breath, SOB with Exertion, SOB at Rest, Stridor, Wheezing, Productive cough, Hemoptysis, Other Cardiac (ROS): Yes: Lightheadedness, Palpitations. No: Symptoms Reported, See HPI, Chest Pain, Edema, Irregular Heart Rate, Syncope, Chest Tightness, Other ABD/GI: Yes: Nausea, Vomiting. No: Symptoms Reported, See HPI, Abdominal Distended, Abd. Pain w/ defecation, Blood Streaked Bowels, Constipated, Diarrhea , Difficulty Swallowing, Poor Appetite, Poor Fluid Intake, Rectal Bleeding, Indigestion, Abdominal cramping, Tarry Stools, Other : No: Symptoms Reported, See HPI, Burning, Dysuria, Discharge, Frequency, Flank Pain, Hematuria, Incontinence, Pain, Urgency, Testicular Mass, Testicular Swelling, Lesions, Testicular Pain, Other Neurological: No: Symptoms reported, See HPI, Headache, Numbness, Paresthesia, Pre-Existing Deficit, Seizure, Tingling, Tremors, Weakness, Unsteady Gait, Ataxia, Dizziness, Other *Physical Exam - Vital Signs Last Vital Signs Temp Pulse Resp BP Pulse Ox 98.4 F 103 H 18 133/80 100 02/19/19 14:59 02/19/19 14:59 02/19/19 14:59 02/19/19 14:59 02/19/19 14:59 - Physical Exam General Appearance: Yes: Nourished, Appropriately Dressed. No: Apparent Distress HEENT: positive: EOMI, DEVYN, Normal ENT Inspection, Normal Voice, Symmetrical Neck: positive: Normal Thyroid, Supple Respiratory/Chest: positive: Lungs Clear, Normal Breath Sounds. negative: Chest Tender, Respiratory Distress, Crackles, Wheezing Cardiovascular: positive: Regular Rhythm, S1, S2, Edema, Tachycardia Vascular Pulses: Dorsalis-Pedis (R): 2+, Doralis-Pedis (L): 2+ Gastrointestinal/Abdominal: positive: Normal Bowel Sounds. negative: Tender Musculoskeletal: positive: Normal Inspection. negative: CVA Tenderness Extremity: positive: Normal Capillary Refill, Normal Inspection, Normal Range of Motion. negative: Tender, Pedal Edema Neurologic: positive: tandem operator II-XII NML intact, Fully Oriented, Alert, Normal Mood/ Affect, Normal Response, Motor Strength / ED Treatment Course - LABORATORY CBC & Chemistry Diagram: 02/19/19 17:30 02/19/19 17:30 - ADDITIONAL ORDERS Additional order review: Laboratory Results 02/19/19 02/19/19 02/19/19 17:30 17:30 17:30 PT with INR 17.30 H INR 1.46 H Sodium 140 Potassium 4.3 Chloride 104 Carbon Dioxide 23 Anion Gap 13 BUN 14.1 Creatinine 0.6 Est GFR (CKD-EPI)AfAm 119.77 Est GFR (CKD-EPI)NonAf 103.34 Random Glucose 82 Calcium 9.4 Total Bilirubin 0.5 AST 24 ALT 19 Alkaline Phosphatase 147 H Creatine Kinase 79 Troponin I < 0.02 Total Protein 7.7 Albumin 4.0 TSH 1.15 02/19/19 17:30 RBC 4.68 MCV 89.0 MCHC 33.1 RDW 12.3 MPV 9.3 D Neutrophils % 85.5 H Lymphocytes % 8.5 D Monocytes % 5.3 Eosinophils % 0.2 Basophils % 0.5 Medical Decision Making - Medical Decision Making 02/19/19 16:35 - Cardiac monitoring - CBC, CMP, TSH, coags - CXR 02/19/19 18:30 WBC: 13.9 Alk P: 147 Pt has remained in sinus rhythm. Plan to admit tele obs. 02/19/19 18:31 02/19/19 18:39 Discharge - Discharge Information Problems reviewed: Yes Clinical Impression/Diagnosis: A-fib Qualifiers: Atrial fibrillation type: unspecified Qualified Code(s): I48.91 - Unspecified atrial fibrillation - Admission Yes - Follow up/Referral Referrals: Harsha Acharya MD [Primary Care Provider] - - Patient Discharge Instructions Additional Instructions: Pt will be admitted overnight for cardiac monitoring. - Post Discharge Activity
[2019-02-19 17:48] LABS: BASO % 0.5 % (0-2.0); EOS % 0.2 % (0-4.5); HEMATOCRIT 41.6 % (32.4-45.2); HEMOGLOBIN 13.8 GM/dL (10.7-15.3); LYMPH % 8.5 % (8-40); MCH 29.4 pg (25.7-33.7); MCHC 33.1 g/dl (32.0-36.0); MEAN PLT VOLUME 9.3 fl (7.5-11.1); MONO % 5.3 % (3.8-10.2); NEUT % 85.5 % (42.8-82.8); PLATELET COUNT 318 K/MM3 (134-434); RBC 4.68 M/mm3 (3.60-5.2); RDW 12.3 % (11.6-15.6); WHITE BLOOD COUNT 13.9 K/mm3 (4.0-10.0)
--- NOTE | 2019-02-19 17:50 | PDOC ---
Documentation entered by Charli Starks SCRIBE, acting as scribe for Kenrick Mckeon MD. Kenrick Mckeon MD: This documentation has been prepared by the Raudel raza Daniel, SCRIBE, under my direction and personally reviewed by me in its entirety. I confirm that the documentation accurately reflects all work, treatment, procedures, and medical decision making performed by me. Attending Attestation - Resident Resident Name: Zaida Menjivar - ED Attending Attestation I have performed the following: I have examined & evaluated the patient, The case was reviewed & discussed with the resident, I agree w/resident's findings & plan, Exceptions are as noted - HPI HPI: 02/19/19 17:19 The patient is a 53 year old female with a past medical history of afib (xarelto ) and HTN here today for evaluation of palpitations and tachycardia. The patient reports that she has had a few days of fatigue and congestion and noticed intermittent tachycardia and palpitations while at home today. Pts reports checking her HR at home and finding it to be in the 120s which prompted him to take her to her PCPs office. Per Dr. Acharya, while in the office, she was noted to have a heart rate in the 140s, an elevated blood pressure, broke out in hives on the left side of her face, felt flushed, and felt lightheaded like she was going to pass out. This episode lasted for 5 mins with sustained tachycardia. At that point an ambulance was called and the pt was brought to the ED for further evaluation. At this time, pt denies any of those symptoms but states they have been coming and going for a week. Patient denies headache, dizziness, focal numbness/weakness. Denies fever, chills. Denies chest pain, shortness of breath. Denies nausea, vomiting, diarrhea, abdominal pain. Allergies: NKA PCP: Harsha Acharya - Physicial Exam PE: 02/19/19 17:19 GENERAL: Awake, alert, and fully oriented, in no acute distress HEAD: No signs of trauma EYES: PERRLA, EOMI, sclera anicteric, conjunctiva clear ENT: Nares patent, oropharynx clear with mild erythema but without exudates. Moist mucosa NECK: Normal ROM, supple, no lymphadenopathy, JVD, or masses LUNGS: Breath sounds equal, clear to auscultation bilaterally. No wheezes, and no crackles HEART: Regular rate and rhythm, rate 100, normal S1 and S2, no murmurs, rubs or gallops ABDOMEN: Soft, nontender, normoactive bowel sounds. No guarding, no rebound. No masses EXTREMITIES: Normal range of motion, no edema. No cords, erythema, or tenderness NEUROLOGICAL: Normal speech, cranial nerves intact, 5/5 strength in all 4 extremities, normal sensation to light touch in all 4 extremities, normal cerebellar exam, normal gait, normal reflexes and tone SKIN: Warm, Dry, normal turgor, no rashes or lesions noted. - Medical Decision Making 02/19/19 17:48 53-year-old female with multiple medical problems including A. fib on Eliquis and diltiazem for rate control presents the emergency department with episodes of tachycardia up to the 140s. Patient had a witnessed episode today by Dr. Acharya at which point she became pale and felt like she was going to faint prompting EMS activation. On arrival to the emergency department patient is mildly tachycardic to 103, but in sinus on her EKG. She is currently asymptomatic, but does mention multiple similar episodes over the last week. Per Dr. Acharya, he wanted to refer the patient to Dr. Baxter from cardiology, however due to this episode he recommends telemetry observation. This plan has been discussed with the patient who is reluctant to stay due to the holiday tomorrow, but is amenable to waiting for her work-up to be done and then we will reassess. 02/19/19 19:48 Pt amenable to admission Pt admitted to [facility] for tachycardic events and pre-syncope Heart Score/ECG Review #1 02/19/19 17:47 Twelve-lead EKG was performed and reviewed by me. Normal sinus rhythm, rate 98. Normal axis and intervals. No ST elevations or T wave inversions.
[2019-02-19 18:00] LABS: INR 1.46 (0.83-1.09); PROTHROMBIN TIME (PATIENT) 17.3 SEC (9.7-13.0)
[2019-02-19] MEDS ORDERED: RIVAROXABAN 20 MG TABLET PO SCH (18:00)
[2019-02-19 18:23] LABS: BILIRUBIN,TOTAL 0.5 mg/dL (0.2-1); BLOOD UREA NITROGEN 14.1 mg/dL (7-18); CALCIUM 9.4 mg/dL (8.5-10.1); CREATININE 0.6 mg/dL (0.55-1.3); POTASSIUM 4.3 mmol/L (3.5-5.1); TOT PROT 7.7 g/dl (6.4-8.2)
--- NOTE | 2019-02-19 19:46 | PDOC ---
*Physical Exam - Vital Signs Last Vital Signs Temp Pulse Resp BP Pulse Ox 98.4 F 103 H 18 133/80 100 02/19/19 14:59 02/19/19 14:59 02/19/19 14:59 02/19/19 14:59 02/19/19 14:59 ED Treatment Course - LABORATORY CBC & Chemistry Diagram: 02/19/19 17:30 02/19/19 17:30 - ADDITIONAL ORDERS Additional order review: Laboratory Results 02/19/19 02/19/19 02/19/19 17:30 17:30 17:30 PT with INR 17.30 H INR 1.46 H Sodium 140 Potassium 4.3 Chloride 104 Carbon Dioxide 23 Anion Gap 13 BUN 14.1 Creatinine 0.6 Est GFR (CKD-EPI)AfAm 119.77 Est GFR (CKD-EPI)NonAf 103.34 Random Glucose 82 Calcium 9.4 Total Bilirubin 0.5 AST 24 ALT 19 Alkaline Phosphatase 147 H Creatine Kinase 79 Troponin I < 0.02 Total Protein 7.7 Albumin 4.0 TSH 1.15 02/19/19 17:30 RBC 4.68 MCV 89.0 MCHC 33.1 RDW 12.3 MPV 9.3 D Neutrophils % 85.5 H Lymphocytes % 8.5 D Monocytes % 5.3 Eosinophils % 0.2 Basophils % 0.5 Medical Decision Making - Medical Decision Making 02/19/19 19:45 Received sign out from Dr Menjivar. 53yo F with multiple medical problems including Afib on Eliquis and diltiazem for rate control presents from PCP Dr. Acharya's office with episodes of tachycardia up to the 140s and witnessed presyncopal episode, sent for tele obs. Asymptomatic here in ED. Reviewed CXR, labs, EKG - of note, WBC 13.9, no concerning findings. Pt seen and assessed at bedside. Requests gluten free diet - ordered. Will admit to tele obs. 02/19/19 20:38 Signed out to admitting team. Discharge - Discharge Information Problems reviewed: Yes Clinical Impression/Diagnosis: Pre-syncope A-fib Qualifiers: Atrial fibrillation type: unspecified Qualified Code(s): I48.91 - Unspecified atrial fibrillation Condition: Stable - Admission Yes - Follow up/Referral - Patient Discharge Instructions - Post Discharge Activity
--- NOTE | 2019-02-19 20:50 | HP ---
Admitting History and Physical - Primary Care Physician PCP: Harsha Acharya - Admission Chief Complaint: Palpitations History of Present Illness: This is a 53 y/o woman with a PMHx of Afib (on Xarelto), HTN, Anxiety. Who presents to the ED from her PMDs office. Patient reports having recent cold symptoms and had an appointment with her PMD. During the visit the patient and her reports her being diaphoretic, having palpitations. Patient reports being seen by her director of events several months ago, without issue. Patient's expressed desire to get a 2nd Cardiology opinion, they will be scheduling an appointment with Dr. Arsh Adams. Patient denies fever, chills, cough, dizziness, AP, N/V/D, constipation, dysuria. Patient reports having an recent echo and stress test- normal. History Source: Patient, Family Member Limitations to Obtaining History: No Limitations - Past Medical History Cardiovascular: Yes: AFIB, HTN Psych: Yes: Anxiety, Panic - Past Surgical History Past Surgical History: Yes: Laminectomy (lower back surgery several years ago) - Smoking History Smoking history: Never smoked Have you smoked in the past 12 months: No - Alcohol/Substance Use Hx Alcohol Use: No History of Substance Use: reports: None - Social History Usual Living Arrangement: Yes: With Spouse Do you think of yourself as: Straight/Heterosexual ADL: Independent History of Recent Travel: No Home Medications - Allergies Allergies/Adverse Reactions: Allergies Allergy/AdvReac Type Severity Reaction Status Date / Time No Known Allergies Allergy Unverified 07/04/18 17:21 - Home Medications Home Medications: Ambulatory Orders Diltiazem Cd [Cardizem Cd -] 120 mg PO DAILY #30 cap.cd.24h 07/04/18 Alprazolam 0.5 mg PO BID PRN 02/19/19 Benazepril HCl [Lotensin] 20 mg PO DAILY 02/19/19 Paroxetine HCl 10 mg PO DAILY 02/19/19 Rivaroxaban [Xarelto -] 20 mg PO DAILY 02/19/19 Review of Systems - Review of Systems Constitutional: reports: No Symptoms Eyes: reports: No Symptoms HENT: reports: Nasal Congestion, Throat Pain Neck: reports: No Symptoms Cardiovascular: reports: Chest Pain, Palpitations Gastrointestinal: reports: No Symptoms Genitourinary: reports: No Symptoms Breasts: reports: No Symptoms Reported Musculoskeletal: reports: No Symptoms Integumentary: reports: No Symptoms Neurological: reports: Syncope Endocrine: reports: No Symptoms Hematology/Lymphatic: reports: No Symptoms Psychiatric: reports: No Symptoms Pain Intensity: 4 Physical Examination Vital Signs: Vital Signs Temperature 98.4 F 02/19/19 14:59 Pulse Rate 103 H 02/19/19 14:59 Respiratory Rate 18 02/19/19 14:59 Blood Pressure 133/80 02/19/19 14:59 O2 Sat by Pulse Oximetry (%) 100 02/19/19 14:59 Constitutional: Yes: Anxious Eyes: Yes: WNL, Conjunctiva Clear, EOM Intact, PERRL HENT: Yes: WNL, Atraumatic, Normocephalic, Pharyngeal Erythema Neck: Yes: WNL, Supple, Trachea Midline Cardiovascular: Yes: Tachycardia, S1, S2, Other (CP non-reproducible) Respiratory: Yes: WNL, Regular, CTA Bilaterally Gastrointestinal: Yes: WNL, Normal Bowel Sounds, Soft Renal/: Yes: WNL Breast(s): Yes: WNL Musculoskeletal: Yes: WNL Extremities: Yes: WNL Edema: No Peripheral Pulses WNL: Yes Integumentary: Yes: WNL Neurological: Yes: WNL, Alert, Oriented, Cran Nerves II-XII Intact ...Motor Strength: WNL Psychiatric: Yes: WNL, Alert, Oriented Labs: CBC, BMP 02/19/19 17:30 02/19/19 17:30 Laboratory Results - last 24 hr 02/19/19 02/19/19 02/19/19 17:30 17:30 17:30 WBC 13.9 H RBC 4.68 Hgb 13.8 Hct 41.6 MCV 89.0 MCH 29.4 MCHC 33.1 RDW 12.3 Plt Count 318 MPV 9.3 D Absolute Neuts (auto) 11.9 H Neutrophils % 85.5 H Lymphocytes % 8.5 D Monocytes % 5.3 Eosinophils % 0.2 Basophils % 0.5 Nucleated RBC % 0 PT with INR INR Sodium 140 Potassium 4.3 Chloride 104 Carbon Dioxide 23 Anion Gap 13 BUN 14.1 Creatinine 0.6 Est GFR (CKD-EPI)AfAm 119.77 Est GFR (CKD-EPI)NonAf 103.34 Random Glucose 82 Calcium 9.4 Total Bilirubin 0.5 AST 24 ALT 19 Alkaline Phosphatase 147 H Creatine Kinase 79 Troponin I < 0.02 Total Protein 7.7 Albumin 4.0 TSH 1.15 02/19/19 02/20/19 17:30 02:50 WBC RBC Hgb Hct MCV MCH MCHC RDW Plt Count MPV Absolute Neuts (auto) Neutrophils % Lymphocytes % Monocytes % Eosinophils % Basophils % Nucleated RBC % PT with INR 17.30 H INR 1.46 H Sodium Potassium Chloride Carbon Dioxide Anion Gap BUN Creatinine Est GFR (CKD-EPI)AfAm Est GFR (CKD-EPI)NonAf Random Glucose Calcium Total Bilirubin AST ALT Alkaline Phosphatase Creatine Kinase Troponin I < 0.02 Total Protein Albumin TSH Intake & Output 02/17/19 02/18/19 02/19/19 02/20/19 23:59 23:59 23:59 23:59 Weight 50.439 kg Current Medications Generic Name Dose Route Start Last Admin Trade Name Freq PRN Reason Stop Dose Admin Diltiazem HCl 120 mg 02/20/19 10:00 Cardizem Cd - PO DAILY [facility] Lisinopril 20 mg 02/20/19 10:00 Prinivil PO DAILY [facility] Rivaroxaban 20 mg 02/20/19 18:00 Xarelto PO DAILY@1800 [facility] Imaging - Results Chest X-ray: Image Reviewed EKG: Image Reviewed Problem List - Problems (1) Pre-syncope Assessment/Plan: Likely secondary to Arrhythmia Cardiac monitoring Serial Enzymes neg x1, will trend Appreciate Cardiology consult Carotid Doppler r/o Stenosis Patient reports recent Echo and Stress Test- nl, per patient, will need to obtain results- Dr. Brown Orthostatics Monitor CBC, BMP Fall Precautions Code(s): R55 - SYNCOPE AND COLLAPSE (2) Chest pain Assessment/Plan: Likely secondary to Arrhythmia r/o ACS HEART Score 3 EKG reviewed Chest Xray reviewed Serial Enzymes Cardiology consult Continue cardiac monitoring Code(s): R07.9 - CHEST PAIN, UNSPECIFIED (3) A-fib Assessment/Plan: [id number] 2-3 EKG reviewed- NSR cannot r/o anterior infarct age undetermined Continue Xarelto Continue cardiac monitoring Appreciate Cardiology consult Code(s): I48.91 - UNSPECIFIED ATRIAL FIBRILLATION Qualifiers: Atrial fibrillation type: unspecified Qualified Code(s): I48.91 - Unspecified atrial fibrillation (4) HTN (hypertension) Assessment/Plan: stable Monitor BP Continue home meds with parameters Monitor renal function Code(s): I10 - ESSENTIAL (PRIMARY) HYPERTENSION (5) Hyperlipidemia Assessment/Plan: no current med Consider Lipitor will defer to Cardiology Code(s): E78.5 - HYPERLIPIDEMIA, UNSPECIFIED Assessment/Plan This is a 53 y/o woman with a PMHx of HTN, Afib (Xarelto). Placed in [facility] Observation for Syncope, Chest Pain for further evaluation of their emergent condition. Plan: See Problem List FEN PO Fluids as tolerated Replete lytes prn Low Na Diet DVT ppx OOB SCDs Continue Xarelto Dispo: Observation Visit type - Emergency Visit Emergency Visit: Yes ED Registration Date: 02/19/19 Care time: The patient presented to the Emergency Department on the above date and was hospitalized for further evaluation of their emergent condition. - New Patient This patient is new to me today: Yes Date on this admission: 02/19/19 - Critical Care Critical Care patient: No
--- NOTE | 2019-02-20 10:33 | CON.CARD ---
Consult Consult Specialty:: Cardiology Referred by:: Zamzam Pfeiffer Reason for Consultation:: Paroxysmal Afib with RVR, palpitations, near syncope - History of Present Illness Chief Complaint: Paroxysmal Afib, palpitations History of Present Illness: This is a 53 y/o woman with a PMHx of paroxysmal Afib (on Xarelto), HTN, Anxiety who presented to the ED from her PMDs office for nausea, diaphoresis, palpitations, tachycardia 140's, hypotension, fatigue, near w/o true syncope and flushed. Patient reports being seen by her media relations intern Dr. Jackson Brown several months ago, without issue. Patient's expressed desire to get a 2nd Cardiology opinion, they will be scheduling an appointment with Dr. Fabiana Adams. Patient denies fever, chills, cough, dizziness, AP, N/V/D, constipation, dysuria. Patient reports having an recent echo and stress test- normal. Pt last saw media relations intern, Dr. Brown a few months ago, echo and stress testing reportedly normal. She takes diltiazem 120mg daily and Xarelto 20 qd which she reports compliance with. Currently in NSR, pt is now feeling better and denies palpitations, chest pain, lightheadedness, dizziness, nausea, or fatigue. Reported migraine RICE and diarrhea on metoprolol. PCP: Dr. Ridley Cardio: Dr. Brown Surgeries: hernia repair Allergies: NKDA - History Source History Provided By: Patient Limitations to Obtaining History: No Limitations - Past Medical History Cardio/Vascular: Yes: AFIB, HTN ...: No Psych: Yes: Anxiety, Panic - Past Surgical History Past Surgical History: Yes: Laminectomy (lower back surgery several years ago) - Alcohol/Substance Use Hx Alcohol Use: No History of Substance Use: reports: None - Smoking History Smoking history: Never smoked Have you smoked in the past 12 months: No - Social History Usual Living Arrangement: With Spouse ADL: Independent History of Recent Travel: No Home Medications - Allergies Allergies/Adverse Reactions: Allergies Allergy/AdvReac Type Severity Reaction Status Date / Time No Known Allergies Allergy Unverified 07/04/18 17:21 - Home Medications Home Medications: Ambulatory Orders Diltiazem Cd [Cardizem Cd -] 120 mg PO DAILY #30 cap.cd.24h 07/04/18 Alprazolam 0.5 mg PO BID PRN 02/19/19 Benazepril HCl [Lotensin] 20 mg PO DAILY 02/19/19 Paroxetine HCl 10 mg PO DAILY 02/19/19 Rivaroxaban [Xarelto -] 20 mg PO DAILY 02/19/19 Review of Systems - Review of Systems Constitutional: reports: Malaise Cardiovascular: reports: Palpitations Respiratory: reports: SOB Neurological: reports: Dizziness, Weakness Vital Signs: Vital Signs Temperature 98.5 F 02/20/19 04:42 Pulse Rate 83 02/20/19 04:42 Respiratory Rate 20 02/20/19 04:42 Blood Pressure 130/73 02/20/19 04:42 O2 Sat by Pulse Oximetry (%) 100 02/20/19 04:42 Constitutional: Yes: No Distress, Calm, Thin Neck: Yes: Supple Respiratory: Yes: Regular, CTA Bilaterally Gastrointestinal: Yes: Normal Bowel Sounds, Soft Cardiovascular: Yes: Regular Rate and Rhythm JVD: No Carotid Bruit: No Heart Sounds: Yes: S1, S2 Edema: No - Other Data Labs, Other Data: CBC, BMP 02/19/19 17:30 02/19/19 17:30 INR, PTT INR 1.46 (0.83-1.09) H 02/19/19 17:30 Troponin, BNP 02/19/19 02/20/19 17:30 02:50 Troponin I < 0.02 < 0.02 Troponin, BNP 02/19/19 02/20/19 17:30 02:50 Troponin I < 0.02 < 0.02 NSR @ 98 QTc 449 msec Echo: Pending Ejection Fraction %: LVEF > or = 40 % Imaging - Results Chest X-ray: Report Reviewed (NAD) Problem List - Problems (1) Chronic anticoagulation Code(s): Z79.01 - CORRECTION (CURRENT) USE OF ANTICOAGULANTS (2) A-fib Code(s): I48.91 - UNSPECIFIED ATRIAL FIBRILLATION Qualifiers: Atrial fibrillation type: paroxysmal Qualified Code(s): I48.0 - Paroxysmal atrial fibrillation (3) Chest pain Code(s): R07.9 - CHEST PAIN, UNSPECIFIED Qualifiers: Chest pain type: precordial pain Qualified Code(s): R07.2 - Precordial pain (4) HTN (hypertension) Code(s): I10 - ESSENTIAL (PRIMARY) HYPERTENSION Qualifiers: Hypertension type: essential hypertension Qualified Code(s): I10 - Essential (primary) hypertension (5) Hyperlipidemia Code(s): E78.5 - HYPERLIPIDEMIA, UNSPECIFIED Qualifiers: Hyperlipidemia type: pure hypercholesterolemia Qualified Code(s): E78.00 - Pure hypercholesterolemia, unspecified; E78.0 - Pure hypercholesterolemia (6) Palpitations Code(s): R00.2 - PALPITATIONS (7) Pre-syncope Code(s): R55 - SYNCOPE AND COLLAPSE Assessment/Plan 1. Symptomatic paroxysmal atrial fibrillation with RVR currently in NSR [id number] 2. Hypertensive heart disease 3. Hyperlipidemia 4. Anxiety d/o P:1. Change Cardizem CD to Sotalol 80 bid with monitor QTc x 2 days, telemetry monitoring, ruled out for [place] 2. Continue benazapril 20 qd, Xarelto 20 qd 3. Review outpatient records of recent stress testing and echo, RFA if PAF recurs despite antiarrythmic therapy 4. Thank you for consultative opportunity, patient has requested to f/u with Dr. Adams upon d/c
[2019-02-20] MEDS: LISINOPRIL 20 MG TABLET (FP) PO SCH (10:47)
--- NOTE | 2019-02-20 10:47 | PN ---
Progress Note (short form) - Note Progress Note: sent from Dr Acharya office for palpitations, flushes appearance Pt feels well now No chest pain or palpitations Vital Signs - 24 hr 02/19/19 02/19/19 02/19/19 14:59 19:30 22:00 Temperature 98.4 F 98.1 F 99.1 F Pulse Rate 103 H 92 H 84 Pulse Rate [ Right Radial] Respiratory 18 14 20 Rate Blood Pressure 133/80 132/78 136/80 Blood Pressure [Left Arm] O2 Sat by Pulse 100 97 Oximetry (%) 02/20/19 02/20/19 01:37 04:42 Temperature 98.5 F Pulse Rate 83 Pulse Rate [ 95 H Right Radial] Respiratory 18 18 Rate Blood Pressure 130/73 Blood Pressure 112/81 [Left Arm] O2 Sat by Pulse 100 100 Oximetry (%) Current Medications Generic Name Dose Route Start Last Admin Trade Name Freq PRN Reason Stop Dose Admin Diltiazem HCl 120 mg 02/20/19 10:00 Cardizem Cd - PO DAILY [facility] Lisinopril 20 mg 02/20/19 10:00 Prinivil PO DAILY [facility] Rivaroxaban 20 mg 02/20/19 18:00 Xarelto PO DAILY@1800 [facility] Laboratory Results - last 24 hr 02/19/19 02/19/19 02/19/19 17:30 17:30 17:30 WBC 13.9 H RBC 4.68 Hgb 13.8 Hct 41.6 MCV 89.0 MCH 29.4 MCHC 33.1 RDW 12.3 Plt Count 318 MPV 9.3 D Absolute Neuts (auto) 11.9 H Neutrophils % 85.5 H Lymphocytes % 8.5 D Monocytes % 5.3 Eosinophils % 0.2 Basophils % 0.5 Nucleated RBC % 0 PT with INR INR Sodium 140 Potassium 4.3 Chloride 104 Carbon Dioxide 23 Anion Gap 13 BUN 14.1 Creatinine 0.6 Est GFR (CKD-EPI)AfAm 119.77 Est GFR (CKD-EPI)NonAf 103.34 Random Glucose 82 Calcium 9.4 Total Bilirubin 0.5 AST 24 ALT 19 Alkaline Phosphatase 147 H Creatine Kinase 79 Troponin I < 0.02 Total Protein 7.7 Albumin 4.0 TSH 1.15 02/19/19 02/20/19 17:30 02:50 WBC RBC Hgb Hct MCV MCH MCHC RDW Plt Count MPV Absolute Neuts (auto) Neutrophils % Lymphocytes % Monocytes % Eosinophils % Basophils % Nucleated RBC % PT with INR 17.30 H INR 1.46 H Sodium Potassium Chloride Carbon Dioxide Anion Gap BUN Creatinine Est GFR (CKD-EPI)AfAm Est GFR (CKD-EPI)NonAf Random Glucose Calcium Total Bilirubin AST ALT Alkaline Phosphatase Creatine Kinase Troponin I < 0.02 Total Protein Albumin TSH S1 S2 RRR Lungs clear Abd-soft, NT no edema A/P Paroxysmal Afib Anxiety Palpitations HTN -- had episode of migraine prior to the event -- may need to increase cardizem -- she had a stress test in October this year-- normal per pt -- may need event monitor as outpt -- cardiology eval -- continue with meds -- labs that were done recently at PMD office not remarkable Problem List - Problems (1) A-fib Code(s): I48.91 - UNSPECIFIED ATRIAL FIBRILLATION Qualifiers: Atrial fibrillation type: unspecified Qualified Code(s): I48.91 - Unspecified atrial fibrillation (2) Chest pain Code(s): R07.9 - CHEST PAIN, UNSPECIFIED (3) HTN (hypertension) Code(s): I10 - ESSENTIAL (PRIMARY) HYPERTENSION (4) Hyperlipidemia Code(s): E78.5 - HYPERLIPIDEMIA, UNSPECIFIED (5) Panic anxiety syndrome Code(s): F41.0 - PANIC DISORDER [EPISODIC PAROXYSMAL ANXIETY]
--- NOTE | 2019-02-20 11:36 | EKG ---
Test Reason : Blood Pressure : / mmHG Vent. Rate : 098 BPM Atrial Rate : 098 BPM P-R Int : 150 ms QRS Dur : 074 ms QT Int : 352 ms P-R-T Axes : 031 026 022 degrees QTc Int : 449 ms NORMAL SINUS RHYTHM LOW VOLTAGE QRS CANNOT RULE OUT ANTERIOR INFARCT , AGE UNDETERMINED ABNORMAL ECG WHEN COMPARED WITH ECG OF 04-JUL-2018 10:04, NONSPECIFIC T WAVE ABNORMALITY, IMPROVED IN ANTERIOR LEADS Confirmed by NGOC LOPEZ MD ([id number]) on 02/20/2019 11:36:43 AM Referred By: Confirmed By:NGOC LOPEZ MD
[2019-02-20] MEDS ORDERED: SOTALOL HCL 80 MG TABLET (FP) PO SCH (12:30)
[2019-02-20] MEDS: RIVAROXABAN 20 MG TABLET PO SCH (17:33)
[2019-02-20] MEDS: SOTALOL HCL 80 MG TABLET (FP) PO SCH ×2 (17:33→22:15)
[2019-02-21 08:10] LABS: CHOLESTEROL 164 mg/dL (50-200); HDL CHOLESTEROL 65 mg/dL (40-60); LDL CHOLESTEROL (ONLY SJRH) 79 mg/dL (5-100); TRIGLYCERIDES 91 mg/dL (0-150)
--- NOTE | 2019-02-21 11:02 | PN ---
Progress Note, Physician History of Present Illness: No further palpitations, last episode of PAF with RVR was yesterday prior to sotalol initiation. - Current Medication List Current Medications: Active Medications Lisinopril (Prinivil) 20 mg PO DAILY [facility] Last Admin: 02/20/19 10:47 Dose: 20 mg Rivaroxaban (Xarelto) 20 mg PO DAILY@1800 [facility] Last Admin: 02/20/19 17:33 Dose: 20 mg Sotalol HCl (Betapace -) 80 mg PO BID [facility] Last Admin: 02/20/19 22:15 Dose: 80 mg - Objective Vital Signs: Vital Signs Temperature 98.6 F 02/21/19 05:00 Pulse Rate 60 02/21/19 05:00 Respiratory Rate 20 02/21/19 05:00 Blood Pressure 112/64 02/21/19 05:00 O2 Sat by Pulse Oximetry (%) 98 02/21/19 04:00 Constitutional: Yes: No Distress, Calm, Thin Neck: Yes: Supple Cardiovascular: Yes: Regular Rate and Rhythm Respiratory: Yes: Regular, CTA Bilaterally Gastrointestinal: Yes: Normal Bowel Sounds, Soft Edema: No Labs: CBC, BMP 02/19/19 17:30 02/19/19 17:30 INR, PTT INR 1.46 (0.83-1.09) H 02/19/19 17:30 - ....Imaging EKG: Report Reviewed (NSR @ 68 QTc 452 msec Tele: PAF with RVR ->SR) Problem List - Problems (1) Chronic anticoagulation Code(s): Z79.01 - GROUP HOME (CURRENT) USE OF ANTICOAGULANTS (2) A-fib Code(s): I48.91 - UNSPECIFIED ATRIAL FIBRILLATION Qualifiers: Atrial fibrillation type: paroxysmal Qualified Code(s): I48.0 - Paroxysmal atrial fibrillation (3) Chest pain Code(s): R07.9 - CHEST PAIN, UNSPECIFIED Qualifiers: Chest pain type: precordial pain Qualified Code(s): R07.2 - Precordial pain (4) HTN (hypertension) Code(s): I10 - ESSENTIAL (PRIMARY) HYPERTENSION Qualifiers: Hypertension type: essential hypertension Qualified Code(s): I10 - Essential (primary) hypertension (5) Hyperlipidemia Code(s): E78.5 - HYPERLIPIDEMIA, UNSPECIFIED Qualifiers: Hyperlipidemia type: pure hypercholesterolemia Qualified Code(s): E78.00 - Pure hypercholesterolemia, unspecified; E78.0 - Pure hypercholesterolemia (6) Palpitations Code(s): R00.2 - PALPITATIONS (7) Pre-syncope Code(s): R55 - SYNCOPE AND COLLAPSE Assessment/Plan 1. Symptomatic paroxysmal atrial fibrillation with RVR currently in NSR [id number] 2. Hypertensive heart disease 3. Anxiety d/o P:1. Continue Sotalol 80 bid with monitor QTc x 1 more day, telemetry monitoring , ruled out for [place] 2. Continue benazapril 20 qd, Xarelto 20 qd 3. Review outpatient records of recent stress testing and echo, RFA if PAF recurs despite antiarrythmic therapy 4. Patient has requested to f/u with Dr. Adams upon d/c
--- NOTE | 2019-02-21 11:28 | PN ---
Progress Note (short form) - Note Progress Note: sent from Dr Acharya office for palpitations, flushes appearance Pt feels well now No chest pain or palpitations feels fine started Sotalol Vital Signs - 24 hr 02/20/19 02/20/19 02/20/19 14:00 18:00 20:00 Temperature 98.5 F 98.4 F Pulse Rate 111 H 97 H Respiratory 20 18 Rate Blood Pressure 130/78 133/78 O2 Sat by Pulse 97 Oximetry (%) 02/20/19 02/21/19 02/21/19 22:00 01:29 04:00 Temperature 98.7 F 98.4 F Pulse Rate 97 H 73 Respiratory 18 20 18 Rate Blood Pressure 127/80 111/67 O2 Sat by Pulse 98 Oximetry (%) 02/21/19 05:00 Temperature 98.6 F Pulse Rate 60 Respiratory 20 Rate Blood Pressure 112/64 O2 Sat by Pulse Oximetry (%) Current Medications Generic Name Dose Route Start Last Admin Trade Name Freq PRN Reason Stop Dose Admin Lisinopril 20 mg 02/20/19 10:00 02/20/19 10:47 Prinivil PO 20 mg DAILY [facility] Administration Rivaroxaban 20 mg 02/20/19 18:00 02/20/19 17:33 Xarelto PO 20 mg DAILY@1800 [facility] Administration Sotalol HCl 80 mg 02/20/19 17:00 02/20/19 22:15 Betapace - PO 80 mg BID [facility] Administration Laboratory Results - last 24 hr 02/21/19 02/21/19 06:40 06:40 Hemoglobin A1c % 5.1 Triglycerides 91 Cholesterol 164 Total LDL Cholesterol 79 HDL Cholesterol 65 H S1 S2 RRR Lungs clear Abd-soft, NT no edema A/P Paroxysmal Afib Anxiety Palpitations HTN -- had episode of migraine prior to the event --on sotalol -- she had a stress test in October this year-- normal per pt -- cardiology eval appreciated -- EKG noted-- Qtc not elevated -- continue with meds -- labs that were done recently at PMD office not remarkable Problem List - Problems (1) A-fib Code(s): I48.91 - UNSPECIFIED ATRIAL FIBRILLATION Qualifiers: Atrial fibrillation type: paroxysmal Qualified Code(s): I48.0 - Paroxysmal atrial fibrillation (2) Chest pain Code(s): R07.9 - CHEST PAIN, UNSPECIFIED Qualifiers: Chest pain type: precordial pain Qualified Code(s): R07.2 - Precordial pain (3) HTN (hypertension) Code(s): I10 - ESSENTIAL (PRIMARY) HYPERTENSION Qualifiers: Hypertension type: essential hypertension Qualified Code(s): I10 - Essential (primary) hypertension (4) Hyperlipidemia Code(s): E78.5 - HYPERLIPIDEMIA, UNSPECIFIED Qualifiers: Hyperlipidemia type: pure hypercholesterolemia Qualified Code(s): E78.00 - Pure hypercholesterolemia, unspecified; E78.0 - Pure hypercholesterolemia (5) Panic anxiety syndrome Code(s): F41.0 - PANIC DISORDER [EPISODIC PAROXYSMAL ANXIETY]
[2019-02-21] MEDS: SOTALOL HCL 80 MG TABLET (FP) PO SCH ×2 (11:48→21:43)
[2019-02-21] MEDS: LISINOPRIL 20 MG TABLET (FP) PO SCH (11:48)
--- NOTE | 2019-02-21 14:10 | EKG ---
Test Reason : Blood Pressure : / mmHG Vent. Rate : 068 BPM Atrial Rate : 068 BPM P-R Int : 150 ms QRS Dur : 078 ms QT Int : 426 ms P-R-T Axes : 053 043 038 degrees QTc Int : 452 ms NORMAL SINUS RHYTHM NONSPECIFIC T WAVE ABNORMALITY ABNORMAL ECG WHEN COMPARED WITH ECG OF 19-FEB-2019 15:07, NO SIGNIFICANT CHANGE WAS FOUND Confirmed by NGOC LOPEZ MD ([id number]) on 02/21/2019 2:09:54 PM Referred By: Confirmed By:NGOC LOPEZ MD
[2019-02-21] MEDS: RIVAROXABAN 20 MG TABLET PO SCH (19:42)
[2019-02-22 05:54] VITALS: TEMP 98.1
--- NOTE | 2019-02-22 10:57 | PN ---
Progress Note, Physician History of Present Illness: No further palpitations or episodes of PAF with RVR since 2 days ago prior to sotalol initiation. - Current Medication List Current Medications: Active Medications Lisinopril (Prinivil) 20 mg PO DAILY [facility] Last Admin: 02/21/19 11:48 Dose: 20 mg Rivaroxaban (Xarelto) 20 mg PO DAILY@1800 [facility] Last Admin: 02/21/19 19:42 Dose: 20 mg Sotalol HCl (Betapace -) 80 mg PO BID [facility] Last Admin: 02/21/19 21:43 Dose: 80 mg - Objective Vital Signs: Vital Signs Temperature 98.1 F 02/22/19 05:53 Pulse Rate 61 02/22/19 05:53 Respiratory Rate 18 02/22/19 05:53 Blood Pressure 115/70 02/22/19 05:53 O2 Sat by Pulse Oximetry (%) 98 02/22/19 04:00 Constitutional: Yes: No Distress, Calm Neck: Yes: Supple Cardiovascular: Yes: Regular Rate and Rhythm Respiratory: Yes: Regular, CTA Bilaterally Gastrointestinal: Yes: Normal Bowel Sounds, Soft Edema: No Labs: CBC, BMP 02/19/19 17:30 02/19/19 17:30 INR, PTT INR 1.46 (0.83-1.09) H 02/19/19 17:30 - ....Imaging EKG: Report Reviewed (Tele: NSR, no recurrent PAF or ventricular arrhythmia NSR @ 74 QTc 448 msec) Problem List - Problems (1) Chronic anticoagulation Code(s): Z79.01 - [employer] (CURRENT) USE OF ANTICOAGULANTS (2) A-fib Code(s): I48.91 - UNSPECIFIED ATRIAL FIBRILLATION Qualifiers: Atrial fibrillation type: paroxysmal Qualified Code(s): I48.0 - Paroxysmal atrial fibrillation (3) Chest pain Code(s): R07.9 - CHEST PAIN, UNSPECIFIED Qualifiers: Chest pain type: precordial pain Qualified Code(s): R07.2 - Precordial pain (4) HTN (hypertension) Code(s): I10 - ESSENTIAL (PRIMARY) HYPERTENSION Qualifiers: Hypertension type: essential hypertension Qualified Code(s): I10 - Essential (primary) hypertension (5) Hyperlipidemia Code(s): E78.5 - HYPERLIPIDEMIA, UNSPECIFIED Qualifiers: Hyperlipidemia type: pure hypercholesterolemia Qualified Code(s): E78.00 - Pure hypercholesterolemia, unspecified; E78.0 - Pure hypercholesterolemia (6) Palpitations Code(s): R00.2 - PALPITATIONS (7) Pre-syncope Code(s): R55 - SYNCOPE AND COLLAPSE Assessment/Plan 1. Symptomatic paroxysmal atrial fibrillation with RVR currently in NSR [id number] 2. Hypertensive heart disease 3. Anxiety d/o P:1. Continue Sotalol 80 bid 2. Continue benazapril 20 qd, Xarelto 20 qd 3. Review outpatient records of recent stress testing and echo, RFA if PAF recurs despite antiarrythmic therapy 4. May d/c home, patient has requested to f/u with Drs. Adams/Guillermo [phone]
--- NOTE | 2019-02-22 11:17 | DS ---
Physical Examination Vital Signs: Vital Signs Temperature 98.1 F 02/22/19 05:53 Pulse Rate 61 02/22/19 05:53 Respiratory Rate 18 02/22/19 05:53 Blood Pressure 115/70 02/22/19 05:53 O2 Sat by Pulse Oximetry (%) 98 02/22/19 04:00 Constitutional: Yes: No Distress, Calm Cardiovascular: Yes: Regular Rate and Rhythm Respiratory: Yes: CTA Bilaterally Gastrointestinal: Yes: Normal Bowel Sounds, Soft. No: Tenderness Edema: No Labs: CBC, BMP 02/19/19 17:30 02/19/19 17:30 Discharge Summary Problems reviewed: Yes Reason For Visit: ATRIAL FIBRILLATION, PRE-SYNCOPE Current Active Problems A-fib (Acute) Chest pain (Acute) Chronic anticoagulation (Acute) Palpitations (Acute) Pre-syncope (Acute) Hospital Course: Admitted for palpitations-- rapid Afib ACS ruled out seen by Cardiology Jaime stephens and changed to sotalol Qtc acceptable Pt stable, rate is controlled stable for dc home Condition: Stable - Instructions Referrals: Harsah Acharya MD [Primary Care Provider] - Johan Adams MD [Staff Physician] - Disposition: HOME - Home Medications Comprehensive Discharge Medication List: Ambulatory Orders Alprazolam 0.5 mg PO BID PRN 02/19/19 Benazepril HCl [Lotensin] 20 mg PO DAILY 02/19/19 Paroxetine HCl 10 mg PO DAILY 02/19/19 Rivaroxaban [Xarelto -] 20 mg PO DAILY 02/19/19 Sotalol HCl [Betapace -] 80 mg PO BID #60 tablet 02/22/19
[2019-02-22] MEDS: SOTALOL HCL 80 MG TABLET (FP) PO SCH (11:23)
[2019-02-22] MEDS: LISINOPRIL 20 MG TABLET (FP) PO SCH (11:23)
[2019-02-22 13:23] VITALS: BP 100/83; PULSE 65
[2019-02-23 17:56] VITALS: BMI 19.6
--- NOTE | 2019-02-24 11:24 | EKG ---
Test Reason : Blood Pressure : / mmHG Vent. Rate : 074 BPM Atrial Rate : 074 BPM P-R Int : 150 ms QRS Dur : 078 ms QT Int : 404 ms P-R-T Axes : 048 038 021 degrees QTc Int : 448 ms SINUS RHYTHM WITH PREMATURE VENTRICULAR COMPLEXES NONSPECIFIC T WAVE ABNORMALITY ABNORMAL ECG WHEN COMPARED WITH ECG OF 21-FEB-2019 10:35, PREMATURE VENTRICULAR COMPLEXES ARE NOW PRESENT Confirmed by MAKENZIE MERCADO, LYLE ([id number]) on 02/24/2019 11:23:57 AM Referred By: Rafita MAURO Confirmed By:LYLE BANEGAS MD
== END 2019-02-22 11:30 | disposition home or self-care (01) | DRG 310 ==
LOC: JER 14:51 → JERBED 19:51 → J4W 02-20 02:17 → OBSVTOIN 02-21 11:26
PROVIDERS: ADMIT Internal Medicine; ATTEND Internal Medicine
DX: I48.0 Paroxysmal atrial fibrillation (principal); I10 Essential (primary) hypertension; Z79.01 Long term (current) use of anticoagulants; F41.9 Anxiety disorder, unspecified; R55 Syncope and collapse; E78.5 Hyperlipidemia, unspecified; R07.9 Chest pain, unspecified; F41.0 Panic disorder [episodic paroxysmal anxiety]
CPT/HCPCS: 36415; 71045-TC-FY; 80053; 80061; 82550; 83036; 83721; 84443; 84484; 85025; 85610; 93005; 93010; 93880-TC; 99284-25; G0378

== ENCOUNTER 2020-01-04 16:23 | Emergency (ER) | payer BC ==
[2020-01-04 16:52] VITALS: TEMP 97.7; BMI 19.6
--- OUTSIDE RECORDS SUMMARY | 2020-01-04 16:54 | XMS ---
:1965 Author Organization [facility] Support Name Relationship Address Phone UE Unavailable Unavailable Unavailable DIANA BLACKMON [address] [place] [address] DIANA BLACKMON Spouse [address] [place] [address] Re-disclosure Warning The records that you are about to access may contain information from federally- assisted alcohol or drug abuse programs. If such information is present, then the following federally mandated warning applies: This information has been disclosed to you from records protected by federal confidentiality rules (42 CFR part 2). The federal rules prohibit you from making any further disclosure of this information unless further disclosure is expressly permitted by the written consent of the person to whom it pertains or as otherwise permitted by 42 CFR part 2. A general authorization for the release of medical or other information is NOT sufficient for this purpose. The Federal rules restrict any use of the information to criminally investigate or prosecute any alcohol or drug abuse patient.The records that you are about to access may contain highly sensitive health information, the redisclosure of which is protected by Article 27-F of the [facility] Public Health law. If you continue you may haveaccess to information: Regarding HIV / AIDS; Provided by facilities licensed or operated by the [facility] Office of Mental Health; or Provided by the [facility] Office for People With Developmental Disabilities. If such information is present, then the following [facility] mandated warning applies: This information has been disclosed to you from confidential records which are protected by state law. State law prohibits you from making any further disclosure of this information without the specific written consent of the person to whom it pertains, or as otherwise permitted by law. Any unauthorized further disclosure in violation of state law may result in a fine or halfway sentence or both. A general authorization for the release of medical or other information is NOT sufficient authorization for further disclosure. Insurance Providers Payer name Policy type Policy ID Covered Covered libertarian's Policy P jami / Coverage libertarian ID relationship to [employer] Inf ormation type dobson BC POS [id number] HEALTHCARE O 2
--- NOTE | 2020-01-04 17:07 | PDOC ---
History of Present Illness - General Chief Complaint: Nausea/Vomiting Stated Complaint: HYPERTENSION Time Seen by Provider: 01/04/20 17:06 History Source: Patient Exam Limitations: No Limitations - History of Present Illness Initial Comments: 01/04/20 17:25 54 y.o. F PMHx HTN, Afib on xarelto, anxiety presenting due to elevated blood pressure, nausea and diarrhea. Patient states she took her BP yesterday which was in the 140's she reported headaches and eye watering at the time. Patient endorses eating bur[employer] ashlie yesterday. Patient states she took her blood pressure today which was in the 160's. She had 1 episode of non-bloody emesis and 2 episodes of green diarrhea, no blood. She endorses this is a common occurrence when her blood pressure is elevated. She states she had had no medication changes, no chest pain, sob or blurry/double vision. PCP: Dr. Acharya Specialist: Dr. Li PMHx: HTN, Afib on xarelto, anxiety Meds: In Chart Allergies: Chocolate flavor Is this a multiple visit Asthma Patient?: No Timing/Duration: 24 hours Severity: moderate Past History - Medical History Allergies/Adverse Reactions: Allergies Allergy/AdvReac Type Severity Reaction Status Date / Time chocolate flavor AdvReac Severe Verified 01/04/20 17:51 Home Medications: Ambulatory Orders Alprazolam 0.5 mg PO BID PRN 02/19/19 Benazepril HCl [Lotensin] 20 mg PO DAILY 02/19/19 Paroxetine HCl 10 mg PO DAILY 02/19/19 Rivaroxaban [Xarelto -] 20 mg PO DAILY 02/19/19 Sotalol HCl [Betapace -] 80 mg PO BID #60 tablet 02/22/19 Cardiac Disorders: Yes (afib) COPD: No HTN: Yes - Immunization History Immunization Up to Date: Yes - Psycho-Social/Smoking History Smoking History: Never smoked Have you smoked in the past 12 months: No - Substance Abuse Hx (Audit-C & DAST Scrn) How often the patient has a drink containing alcohol: Never Score: In Men: 4 or > Positive; In Women: 3 or > Positive: 0 Screen Result (Pos requires Nsg. Audit-10AR): Negative Review of Systems - Review of Systems Able to Perform ROS?: Yes Is the patient limited Sami proficient: No Constitutional: No: Chills, Fever HEENTM: Yes: Tearing. No: Blurred Vision, Double Vision Respiratory: No: Cough, Shortness of Breath, Stridor, Wheezing Cardiac (ROS): No: Chest Pain, Edema, Lightheadedness ABD/GI: Yes: Diarrhea (X2), Vomiting (X1 NB). No: Constipated, Nausea : No: Burning, Dysuria Musculoskeletal: No: Back Pain, Muscle Weakness Integumentary: No: Dryness, Pruritus, Rash Neurological: No: Headache, Numbness, Dizziness Hematologic/Lymphatic: No: Blood Clots, Easy Bruising *Physical Exam - Vital Signs Last Vital Signs Temp Pulse Resp BP Pulse Ox 97.7 F 84 20 174/104 H 99 01/04/20 16:49 01/04/20 16:49 01/04/20 16:49 01/04/20 16:49 01/04/20 16:49 - Physical Exam General Appearance: Yes: Nourished, Appropriately Dressed. No: Apparent Distress Respiratory/Chest: positive: Lungs Clear, Normal Breath Sounds. negative: Chest Tender, Respiratory Distress, Accessory Muscle Use, Crackles, Rales, Stridor, Wheezing Cardiovascular: positive: Regular Rhythm, Regular Rate. negative: Edema, JVD, Murmur Gastrointestinal/Abdominal: positive: Normal Bowel Sounds, Flat, Soft. negative: Tender, Distended, Guarding, Rebound, Tenderness Musculoskeletal: positive: Normal Inspection. negative: CVA Tenderness Extremity: positive: Normal Inspection. negative: Tender, Coldness, Swelling, Calf Tenderness Integumentary: positive: Normal Color, Dry, Warm. negative: Cold, Rash, Swelling Neurologic: positive: Fully Oriented, Alert, Normal Mood/Affect, Normal Response Medical Decision Making - Medical Decision Making 01/04/20 17:35 54 y.o. F PMHx HTN, Afib on xarelto, anxiety presenting due to elevated blood pressure, nausea and diarrhea. DDx: Hypertensive episode (secondary to dietary noncompliance) EKG: NSR, QTc 452ms, rate 86. Given sotalol 80mg, zofran 4mg in ED - Patient able to drink fluids and is hungry/willing to eat. - Repeat BP 157/111 Dispo: D/C Home 01/04/20 18:40 Discharge - Discharge Information Problems reviewed: Yes Clinical Impression/Diagnosis: HTN (hypertension) Qualifiers: Hypertension type: unspecified Qualified Code(s): I10 - Essential (primary) hypertension Condition: Stable Disposition: HOME - Admission No - Follow up/Referral Referrals: Harsha Acharya MD [Primary Care Provider] - - Patient Discharge Instructions Additional Instructions: You were seen in the emergency department for high blood pressure. You received blood pressure and anxiety medication. Your labs and imaging showed normal heart rhythm. As such you were treated for elevated blood pressure. You were given blood presure medication and xanax in the emergency department and sent home with a prescription. Please follow up with your primary care physician and or Specialist regarding your visit to the emergency department. If you experience profound headaches, blurry vision, nausea, vomiting, chest pain or shortness of breath please return to the emergency department or call 911. - Post Discharge Activity
[2020-01-04] MEDS ORDERED: SOTALOL HCL 80 MG TABLET (FP) PO ONE (17:58)
[2020-01-04] MEDS ORDERED: ALPRAZolam 1 MG TABLET PO ONE (17:59)
[2020-01-04] MEDS ORDERED: ALPRAZolam 1 MG TABLET PO PRN (17:59)
[2020-01-04] MEDS ORDERED: ONDANSETRON *ODT* 4 MG TABLET SL ONE (18:23)
--- NOTE | 2020-01-04 18:23 | PDOC ---
Documentation entered by Scout Valdes SCRIBE, acting as scribe for Whit Dunlap MD. Whit Dunlap MD: This documentation has been prepared by the scribe, Scout Reyes SCRIBE, under my direction and personally reviewed by me in its entirety. I confirm that the documentation accurately reflects all work, treatment, procedures, and medical decision making performed by me. Attending Attestation - Resident Resident Name: MurtazaDevin - ED Attending Attestation I have performed the following: I have examined & evaluated the patient, The case was reviewed & discussed with the resident, I agree w/resident's findings & plan, Exceptions are as noted - HPI HPI: 01/04/20 17:40 The patient is a 54 year old female with a significant past medical history of Afib (on Xarelto), HTN, and anxiety who presents to the emergency department for evaluation of high blood pressure that began yesterday. The patient notes she recorded her blood pressure in the 140s associated with a headache and watering eyes after eating [employer] yesterday. She reports her blood pressure was in the 160s today. She endorses one episode of NBNB vomiting and two episodes of green diarrhea which she notes is typical to her presentation when her blood pressure is high. The patient is currently asymptomatic. The patient denies chest/abdominal/back pain, cough, and shortness of breath. Denies fever, chills,or any symptoms. Denies any other symptoms. Allergies: Chocolate flavor PCP: Dr. Acharya - Physicial Exam PE: 01/04/20 17:11 GENERAL: Well developed, well nourished. Awake and alert. No acute distress. HEENT: Normocephalic, atraumatic. PERRLA, EOMI. No conjunctival pallor. Sclera are non- icteric. Moist mucous membranes. Oropharynx is clear. NECK: Supple. Full ROM. No JVD. Carotid pulses 2+ and symmetric, without bruits. No thyromegaly. No lymphadenopathy. CARDIOVASCULAR: Regular rate and rhythm. No murmurs, rubs, or gallops. Distal pulses are 2+ and symmetric. PULMONARY: No evidence of respiratory distress. Lungs clear to auscultation bilaterally. No wheezing, rales or rhonchi. ABDOMINAL: Soft. Non-tender. Non-distended. No rebound or guarding. No organomegaly. Normoactive bowel sounds. MUSCULOSKELETAL: Normal range of motion at all joints. No bony deformities or tenderness. No CVA tenderness. EXTREMITIES: No cyanosis. No clubbing. No edema. No calf tenderness. SKIN: Warm and dry. Normal capillary refill. No rashes. No jaundice. NEUROLOGICAL: Alert, awake, appropriate. Cranial nerves 2-12 intact. No deficits to light touch and temperature in face, upper extremities and lower extremities. No motor deficits in the in face, upper extremities and lower extremities. Normoreflexic in the upper and lower extremities. Normal speech. Toes are down-going bilaterally. Gait is normal without ataxia. PSYCHIATRIC: Cooperative. Good eye contact. Appropriate mood and affect. - Medical Decision Making 01/04/20 18:23 This 54 yo female presented because she was concerned about her SPB of 170 earlier / repeat JJ=173/91 today ekg NSR @ 76 bpm pt has IBS syndrome and is followed by Dr Li At 3 pm today she had NVD x 1 she has benign abdominal exam she denies any chest pain or shortness of breath,fever,chills or cough blood pressure is improved and she is being sent home 01/04/20 19:00 Discharge - Discharge Information Problems reviewed: Yes Clinical Impression/Diagnosis: HTN (hypertension) Qualifiers: Hypertension type: unspecified Qualified Code(s): I10 - Essential (primary) hypertension Condition: Stable Disposition: HOME - Follow up/Referral Referrals: Harsha Acharya MD [Primary Care Provider] - - Patient Discharge Instructions Additional Instructions: You were seen in the emergency department for high blood pressure. You received blood pressure and anxiety medication. Your labs and imaging showed normal heart rhythm. As such you were treated for elevated blood pressure. You were given blood presure medication and xanax in the emergency department and sent home with a prescription. Please follow up with your primary care physician and or Specialist regarding your visit to the emergency department. If you experience profound headaches, blurry vision, nausea, vomiting, chest pain or shortness of breath please return to the emergency department or call 911. - Post Discharge Activity
[2020-01-04] MEDS ORDERED: ALPRAZolam 0.25 MG TABLET ONE (18:28)
[2020-01-04 18:49] VITALS: BP 157/91; PULSE 69
[2020-01-04] MEDS ORDERED: ONDANSETRON *ODT* 4 MG TABLET ONE (19:11)
--- NOTE | 2020-01-05 11:49 | EKG ---
Test Reason : Blood Pressure : / mmHG Vent. Rate : 076 BPM Atrial Rate : 076 BPM P-R Int : 152 ms QRS Dur : 072 ms QT Int : 402 ms P-R-T Axes : 055 058 059 degrees QTc Int : 452 ms NORMAL SINUS RHYTHM POSSIBLE ANTERIOR INFARCT , AGE UNDETERMINED ABNORMAL ECG WHEN COMPARED WITH ECG OF 22-FEB-2019 10:11, PREMATURE VENTRICULAR COMPLEXES ARE NO LONGER PRESENT T WAVE VARIATION Confirmed by MAKENZIE MERCADO, LYLE ([id number]) on 01/05/2020 11:49:21 AM Referred By: Confirmed By:LYLE BANEGAS MD
[2020-01-05] MEDS ORDERED: SOTALOL HCL 80 MG TABLET (FP) PO ONE (17:58)
== END 2020-01-04 19:18 | disposition home or self-care (01) ==
LOC: JER 16:23
DX: I10 Essential (primary) hypertension (principal)
CPT/HCPCS: 93005; 93010; 99285-25; Q0162